=== PATIENT | female | born 1940 | race African-American/Black ===

== ENCOUNTER 2017-09-16 19:01 | Emergency (ER) | payer MEDICARE ==
[2017-09-16 19:08] VITALS: TEMP 98.4
[2017-09-16 19:26] VITALS: RESP 18
[2017-09-16] MEDS ORDERED: SODIUM CHLORIDE 0.9% 1,000 ML IV STA (19:44)
[2017-09-16] MEDS ORDERED: RX INFO: IV CONTRAST WAS GIVEN 1 EACH MISC MISCELLANE PRN (19:44)
[2017-09-16] MEDS ORDERED: SODIUM CHLORIDE 0.9% 500 ML IV STA (19:44)
[2017-09-16] MEDS ORDERED: MORPHINE SULFATE 4 MG/ML SYRINGE IVP STA ×3 (19:45→21:22)
[2017-09-16 20:02] LABS: Basophils % (A) 0 %; Eosinophils # (A) 0.2 k/uL (0-0.7); Eosinophils % (A) 3 %; HCT 40.1 % (34.0-46.0); HGB 13.1 gm/dL (11.4-16.0); Lymphocytes # (A) 2.1 k/uL (1.0-4.8); Lymphocytes % (A) 25 %; MCHC 32.6 g/dL (31.0-37.0); Mean Platelet Volume 8.3; Monocytes # (A) 0.4 k/uL (0-1.0); Monocytes % (A) 5 %; Neutrophils # (A) 5.4 k/uL (1.3-7.7); Neutrophils % (A) 66 %; Platelet Count 175 k/uL (150-450); RBC 4.51 m/uL (3.80-5.40); RDW 13.9 % (11.5-15.5); WBC 8.2 k/uL (3.8-10.6)
--- NOTE | 2017-09-16 20:07 | ED ---
General Adult HPI - General Chief complaint: Abdominal Pain Stated complaint: Side pain & vomiting Time Seen by Provider: 09/16/17 19:13 Source: patient, RN notes reviewed, old records reviewed Mode of arrival: wheelchair Limitations: no limitations - History of Present Illness Initial comments: This is a 77-year-old female to the ER for evaluation. This patient presents today for evaluation regarding abdominal pain. Right flank pain. No prior history of pain no prior surgical history no fevers. Patient did of nausea with one episode of vomiting. No recent travel history no sick history, no urinary or bowel issues - Related Data Home Medications Medication Instructions Recorded Confirmed Atorvastatin [Lipitor] 10 mg PO DAILY 05/04/14 09/16/17 Gabapentin [Neurontin] 300 mg PO HS 05/04/14 09/16/17 Losartan [Cozaar] 25 mg PO DAILY 05/04/14 09/16/17 Diclofenac Sodium Gel [Voltaren 4 gm TOPICAL BID PRN 06/12/14 09/16/17 Gel] Mometasone Furoate 1 applic TOPICAL BID 11/14/15 09/16/17 Triamterene/Hydrochlorothiazid 0.5 tab PO DAILY 09/16/17 09/16/17 [Triamterene-Hctz 37.5-25 mg Tb] Previous Rx's Medication Instructions Recorded HYDROcodone/APAP 5-325MG [[place] 1 tab PO Q6HR PRN 3 Days #12 tab 09/16/17 5-325] Allergies Allergy/AdvReac Type Severity Reaction Status Date / Time No Known Allergies Allergy Verified 09/16/17 19:41 Review of Systems ROS Statement: Those systems with pertinent positive or pertinent negative responses have been documented in the HPI. ROS Other: All systems not noted in ROS Statement are negative. Past Medical History Past Medical History: Hyperlipidemia, Hypertension Additional Past Medical History / Comment(s): 06/12/14 Pt admitted to floor s/p Total L knee arthroplasty. Other HX: DIABETES (NO LONGER ON MEDS), PAIN RT SHOULDER FROM FALL -RECEIVED CORTISONE INJECTION 06/07/14. ARTHRITIS ILIANA KNEES. History of Any Multi-Drug Resistant Organisms: None Reported Past Surgical History: Back Surgery Additional Past Surgical History / Comment(s): 06/12/14 Total L knee arthroplasty. D & C Past Anesthesia/Blood Transfusion Reactions: No Reported Reaction Past Psychological History: No Psychological Hx Reported Smoking Status: Never smoker Past Alcohol Use History: None Reported Past Drug Use History: None Reported - Past Family History Mother Family Medical History: No Reported History, CVA/TIA Father Family Medical History: CVA/TIA General Exam Limitations: no limitations General appearance: alert, in no apparent distress, obese Head exam: Present: atraumatic, normocephalic, normal inspection Eye exam: Present: normal appearance, PERRL, EOMI. Absent: scleral icterus, conjunctival injection, periorbital swelling ENT exam: Present: normal exam, mucous membranes moist Neck exam: Present: normal inspection. Absent: tenderness, meningismus, lymphadenopathy Respiratory exam: Present: normal lung sounds bilaterally. Absent: respiratory distress, wheezes, rales, rhonchi, stridor Cardiovascular Exam: Present: regular rate, normal rhythm, normal heart sounds. Absent: systolic murmur, diastolic murmur, rubs, gallop, clicks GI/Abdominal exam: Present: soft, normal bowel sounds. Absent: distended, tenderness, guarding, rebound, rigid Extremities exam: Present: normal inspection, full ROM, normal capillary refill. Absent: tenderness, pedal edema, joint swelling, calf tenderness Back exam: Present: normal inspection Neurological exam: Present: alert, oriented X3, CN II-XII intact Psychiatric exam: Present: normal affect, normal mood Skin exam: Present: warm, dry, intact, normal color. Absent: rash Course Vital Signs 09/16/17 09/16/17 09/16/17 19:06 19:25 20:15 Temperature 98.4 F Pulse Rate 83 85 76 Respiratory 20 18 18 Rate Blood Pressure 241/105 220/99 209/95 O2 Sat by Pulse 96 97 98 Oximetry 09/16/17 09/16/17 09/16/17 20:54 21:13 21:31 Temperature Pulse Rate 91 83 73 Respiratory 18 18 18 Rate Blood Pressure 243/124 187/81 153/71 O2 Sat by Pulse 99 100 100 Oximetry 09/16/17 21:39 Temperature Pulse Rate 82 Respiratory 18 Rate Blood Pressure 181/77 O2 Sat by Pulse 100 Oximetry Medical Decision Making - Lab Data Result diagrams: 09/16/17 19:35 09/16/17 19:35 Lab Results 09/16/17 09/16/17 09/16/17 Range/Units 19:35 19:35 19:35 WBC 8.2 (3.8-10.6) k/uL RBC 4.51 (3.80-5.40) m/uL Hgb 13.1 (11.4-16.0) gm/dL Hct 40.1 (34.0-46.0) % MCV 89.0 (80.0-100.0) fL MCH 29.0 (25.0-35.0) pg MCHC 32.6 (31.0-37.0) g/dL RDW 13.9 (11.5-15.5) % Plt Count 175 (150-450) k/uL Neutrophils % 66 % Lymphocytes % 25 % Monocytes % 5 % Eosinophils % 3 % Basophils % 0 % Neutrophils # 5.4 (1.3-7.7) k/uL Lymphocytes # 2.1 (1.0-4.8) k/uL Monocytes # 0.4 (0-1.0) k/uL Eosinophils # 0.2 (0-0.7) k/uL Basophils # 0.0 (0-0.2) k/uL PT (9.0-12.0) sec INR (<1.2) APTT (22.0-30.0) sec Sodium 142 (137-145) mmol/L Potassium 4.1 (3.5-5.1) mmol/L Chloride 103 (98-107) mmol/L Carbon Dioxide 28 (22-30) mmol/L Anion Gap 11 mmol/L BUN 15 (7-17) mg/dL Creatinine 0.82 (0.52-1.04) mg/dL Est GFR (CKD-EPI)AfAm 81 (>60 ml/min/1.73 sqM) Est GFR (CKD-EPI)NonAf 70 (>60 ml/min/1.73 sqM) Glucose 112 H (74-99) mg/dL Plasma Lactic Acid Ron 1.2 (0.7-2.0) mmol/L Calcium 9.9 (8.4-10.2) mg/dL Total Bilirubin 0.3 (0.2-1.3) mg/dL AST 42 H (14-36) U/L ALT 45 (9-52) U/L Alkaline Phosphatase 95 (38-126) U/L Total Protein 7.4 (6.3-8.2) g/dL Albumin 4.2 (3.5-5.0) g/dL Amylase 83 (30-110) U/L Lipase 248 (23-300) U/L Urine Color Urine Appearance (Clear) Urine pH (5.0-8.0) Ur Specific [place] (1.001-1.035) Urine Protein (Negative) Urine Glucose (UA) (Negative) Urine Ketones (Negative) Urine Blood (Negative) Urine Nitrite (Negative) Urine Bilirubin (Negative) Urine Urobilinogen (<2.0) mg/dL Ur Leukocyte Esterase (Negative) Urine RBC (0-5) /hpf Urine WBC (0-5) /hpf Ur Squamous Epith Cells (0-4) /hpf Urine Mucus (None) /hpf 09/16/17 09/16/17 Range/Units 19:35 21:00 WBC (3.8-10.6) k/uL RBC (3.80-5.40) m/uL Hgb (11.4-16.0) gm/dL Hct (34.0-46.0) % MCV (80.0-100.0) fL MCH (25.0-35.0) pg MCHC (31.0-37.0) g/dL RDW (11.5-15.5) % Plt Count (150-450) k/uL Neutrophils % % Lymphocytes % % Monocytes % % Eosinophils % % Basophils % % Neutrophils # (1.3-7.7) k/uL Lymphocytes # (1.0-4.8) k/uL Monocytes # (0-1.0) k/uL Eosinophils # (0-0.7) k/uL Basophils # (0-0.2) k/uL PT 9.8 (9.0-12.0) sec INR 1.0 (<1.2) APTT 22.3 (22.0-30.0) sec Sodium (137-145) mmol/L Potassium (3.5-5.1) mmol/L Chloride (98-107) mmol/L Carbon Dioxide (22-30) mmol/L Anion Gap mmol/L BUN (7-17) mg/dL Creatinine (0.52-1.04) mg/dL Est GFR (CKD-EPI)AfAm (>60 ml/min/1.73 sqM) Est GFR (CKD-EPI)NonAf (>60 ml/min/1.73 sqM) Glucose (74-99) mg/dL Plasma Lactic Acid Ron (0.7-2.0) mmol/L Calcium (8.4-10.2) mg/dL Total Bilirubin (0.2-1.3) mg/dL AST (14-36) U/L ALT (9-52) U/L Alkaline Phosphatase (38-126) U/L Total Protein (6.3-8.2) g/dL Albumin (3.5-5.0) g/dL Amylase (30-110) U/L Lipase (23-300) U/L Urine Color Yellow Urine Appearance Clear (Clear) Urine pH 6.0 (5.0-8.0) Ur Specific [place] 1.043 H (1.001-1.035) Urine Protein 1+ H (Negative) Urine Glucose (UA) Negative (Negative) Urine Ketones Negative (Negative) Urine Blood Negative (Negative) Urine Nitrite Negative (Negative) Urine Bilirubin Negative (Negative) Urine Urobilinogen <2.0 (<2.0) mg/dL Ur Leukocyte Esterase Moderate H (Negative) Urine RBC 4 (0-5) /hpf Urine WBC 11 H (0-5) /hpf Ur Squamous Epith Cells 5 H (0-4) /hpf Urine Mucus Rare H (None) /hpf Disposition Clinical Impression: Abdominal pain Disposition: HOME SELF-CARE Condition: Good Instructions: Abdominal Pain (ED) Prescriptions: HYDROcodone/APAP 5-325MG [[place] 5-325] 1 tab PO Q6HR PRN 3 Days #12 tab PRN Reason: Pain Is patient prescribed a controlled substance at d/c from ED?: No Referrals: Eduard Pérez MD [Primary Care Provider] - 1-2 days
[2017-09-16 20:14] LABS: Partial Thromboplastin Time 22.3 sec (22.0-30.0); Prothrombin Time 9.8 sec (9.0-12.0)
[2017-09-16 20:26] LABS: Albumin 4.2 g/dL (3.5-5.0); Calcium 9.9 mg/dL (8.4-10.2); Potassium 4.1 mmol/L (3.5-5.1); Total Bilirubin 0.3 mg/dL (0.2-1.3); Total Protein 7.4 g/dL (6.3-8.2)
[2017-09-16] MEDS ORDERED: LABETALOL 5 MG/ML VIAL MDV IVP STA (20:54)
[2017-09-16] MEDS ORDERED: ONDANSETRON ODT 4 MG TAB PO PRN (21:05)
[2017-09-16] MEDS ORDERED: HYDROcodone/APAP 5-325MG 1 EACH TAB PO PRN (21:05)
[2017-09-16] MEDS ORDERED: CEPHALEXIN 500 MG CAP PO STA (21:05)
[2017-09-16] MEDS ORDERED: AMOXIC-POT CLAV 875-125MG 1 EACH TAB PO STA (21:05)
[2017-09-16] MEDS ORDERED: HYDROcodone/APAP 5-325MG 1 EACH TAB PO STA (21:05)
--- NOTE | 2017-09-16 21:18 | CT ---
EXAMINATION TYPE: CT abdomen pelvis w con DATE OF EXAM: 09/16/2017 COMPARISON: NONE HISTORY: Right side abdominal pain with vomiting CT DLP: 1089.0 mGycm Automated exposure control for dose reduction was used. TECHNIQUE: Helical acquisition of images was performed from the lung bases through the pelvis. DLP 1 989 mGy-cm. CONTRAST: Performed without Oral Contrast and with IV Contrast, patient injected with 100 mL of Isovu e 300. FINDINGS: LUNG BASES: No significant abnormality is appreciated. LIVER/GB: No significant abnormality is appreciated. PANCREAS: No significant abnormality is seen. SPLEEN: No significant abnormality is seen. ADRENALS: No significant abnormality is seen. KIDNEYS: No significant abnormality is seen. FREE AIR: No free air is visualized. RETROPERITONEAL ADENOPATHY: None visualized REPRODUCTIVE ORGANS: No significant abnormality is seen, although calcified fibroids are incidentally noted. URINARY BLADDER: No significant abnormality is seen. PELVIC ADENOPATHY: None visualized. OSSEOUS STRUCTURES: No significant abnormality is seen. BOWEL: No significant abnormality is seen. There is no dilation of the stomach or the duodenum. No d ilation of the small bowel or large bowel. OTHER: Vasculature is unremarkable. IMPRESSION: 1. NO ACUTE PROCESS. 2. Small hiatal hernia noted.
[2017-09-16] MEDS ORDERED: KETOROLAC 30 MG/ML 1 ML VIAL IVP STA (21:22)
[2017-09-16 21:29] LABS: Appearance,Urine Clear (Clear); Bilirubin,Urine Negative (Negative); Blood,Urine Negative (Negative); Color,Urine Yellow; Glucose,Urine (UA) Negative (Negative); Ketones,Urine Negative (Negative); Leukocyte Esterase,Urine Moderate (Negative); Mucus,Urine Rare /hpf; Nitrite,Urine Negative (Negative); Protein,Urine 1+ (Negative); RBC,Urine 4 /hpf (0-5); Specific Gravity,Urine 1.043 (1.001-1.035); Squamous Epithelial Cell,Urine 5 /hpf (0-4); Urobilinogen,Urine <2.0 mg/dL (<2.0); WBC,Urine 11 /hpf (0-5)
[2017-09-16 21:40] VITALS: BP 181/77; PULSE 82
[2017-09-16] MEDS ORDERED: CEPHALEXIN 500 MG CAP PO SCH (22:00)
[2017-09-17] MEDS ORDERED: AMOXIC-POT CLAV 875-125MG 1 EACH TAB PO SCH (09:00)
== END 2017-09-16 21:56 | disposition home or self-care (01) ==
LOC: EC 19:01
DX: R10.9 Unspecified abdominal pain (principal); R11.2 Nausea with vomiting, unspecified; E78.5 Hyperlipidemia, unspecified; I10 Essential (primary) hypertension; E66.9 Obesity, unspecified; Z79.52 Long term (current) use of systemic steroids; Z79.899 Other long term (current) drug therapy; Z68.36 Body mass index [BMI] 36.0-36.9, adult
CPT/HCPCS: 36415; 80053; 82150; 83605; 83690; 85025; 85610; 85730; 81001; 87086; 74177; 99285; 96374; 96375 ×2; 96376 ×2; 96361 ×2; J2270; J1885; Q9967

== ENCOUNTER → 2018-06-27 | Outpatient (CLI) | payer MEDICARE ==
--- NOTE | 2018-06-27 15:51 | US ---
EXAMINATION TYPE: US venous doppler duplex LE RT DATE OF EXAM: 06/27/2018 3:12 PM COMPARISON: US CLINICAL HISTORY: M79.89 Other Soft Tissue Disorders. Pt states right leg pain SIDE PERFORMED: Right TECHNIQUE: The lower extremity deep venous system is examined utilizing real time linear array sonog lindsey with graded compression, doppler sonography and color-flow sonography. VESSELS IMAGED: External Iliac Vein (EIV) Common Femoral Vein Deep Femoral Vein Greater Saphenous Vein * Femoral Vein Popliteal Vein Small Saphenous Vein * Proximal Calf Veins (* superficial vessels) Right Leg: Negative for DVT Results called to Judy at Dr's office at time of exam IMPRESSION: 1. Right lower extremity ultrasound negative for deep venous thrombosis.
== END | disposition home or self-care (01) ==
LOC: RADUSWWP 14:21
PROVIDERS: ATTEND Internal Medicine
DX: M79.89 Other specified soft tissue disorders (principal)

== ENCOUNTER 2018-07-17 13:06 | Inpatient (IN) | payer MEDICARE ==
--- NOTE | 2018-07-17 13:34 | ED ---
Extremity Problem HPI <Josué Cardoza - Last Filed: 07/17/18 17:30> - General Source: patient, RN notes reviewed, old records reviewed Mode of arrival: wheelchair Limitations: no limitations <RemiYamila - Last Filed: 07/17/18 17:59> - General Chief complaint: Extremity Problem,Nontraumatic Stated complaint: Leg pain Time Seen by Provider: 07/17/18 13:18 - History of Present Illness Initial comments: Patient is a 78-year-old female who presents today with progressive right leg pain and swelling. Patient reports she was seen by her PCP Dr. Pérez and prescribed antibiotics for a chronic ulceration. She's been on Keflex for the past week. Patient ports that she had a normal Doppler ultrasound on July 05. Patient complains of worsening pain with ambulation and range of motion of the foot and ankle. Patient states that she has had no fevers or chills. Patient reports that she is scheduled to see Dr. Cardenas on for evaluation. Patient reports that she was concerned because last night the wound over her the lateral aspect of the ankle was open and starting to drain. (Yamila Khalil) - Related Data Home Medications Medication Instructions Recorded Confirmed Atorvastatin [Lipitor] 10 mg PO DAILY 05/04/14 09/16/17 Gabapentin [Neurontin] 300 mg PO HS 05/04/14 09/16/17 Losartan [Cozaar] 25 mg PO DAILY 05/04/14 09/16/17 Diclofenac Sodium Gel [Voltaren 4 gm TOPICAL BID PRN 06/12/14 09/16/17 Gel] Mometasone Furoate 1 applic TOPICAL BID 11/14/15 09/16/17 Triamterene/Hydrochlorothiazid 0.5 tab PO DAILY 09/16/17 09/16/17 [Triamterene-Hctz 37.5-25 mg Tb] Previous Rx's Medication Instructions Recorded HYDROcodone/APAP 5-325MG [[place] 1 tab PO Q6HR PRN 3 Days #12 tab 09/16/17 5-325] Allergies Allergy/AdvReac Type Severity Reaction Status Date / Time No Known Allergies Allergy Verified 07/17/18 13:13 Review of Systems ROS Other: All systems not noted in ROS Statement are negative. <Josué Cardoza - Last Filed: 07/17/18 17:30> ROS Other: All systems not noted in ROS Statement are negative. <Yamila Khalil - Last Filed: 07/17/18 17:59> ROS Statement: Those systems with pertinent positive or pertinent negative responses have been documented in the HPI. Past Medical History Past Medical History: Hyperlipidemia, Hypertension Additional Past Medical History / Comment(s): 06/12/14 Pt admitted to floor s/p Total L knee arthroplasty. Other HX: DIABETES (NO LONGER ON MEDS), PAIN RT SHOULDER FROM FALL -RECEIVED CORTISONE INJECTION 06/07/14. ARTHRITIS ILIANA KNEES. History of Any Multi-Drug Resistant Organisms: None Reported Past Surgical History: Back Surgery Additional Past Surgical History / Comment(s): 06/12/14 Total L knee arthroplasty. D & C Past Anesthesia/Blood Transfusion Reactions: No Reported Reaction Past Psychological History: No Psychological Hx Reported Smoking Status: Never smoker Past Alcohol Use History: None Reported Past Drug Use History: None Reported - Past Family History Mother Family Medical History: No Reported History, CVA/TIA Father Family Medical History: CVA/TIA <Yamila Khalil - Last Filed: 07/17/18 17:59> General Exam Limitations: no limitations General appearance: alert, in no apparent distress Head exam: Present: atraumatic, normocephalic, normal inspection Eye exam: Present: normal appearance, PERRL, EOMI. Absent: scleral icterus, conjunctival injection, periorbital swelling ENT exam: Present: normal exam, mucous membranes moist Neck exam: Present: normal inspection. Absent: tenderness, meningismus, lymp hadenopathy Respiratory exam: Present: normal lung sounds bilaterally. Absent: respiratory distress, wheezes, rales, rhonchi, stridor Cardiovascular Exam: Present: regular rate, normal rhythm, normal heart sounds. Absent: systolic murmur, diastolic murmur, rubs, gallop, clicks GI/Abdominal exam: Present: soft, normal bowel sounds. Absent: distended, tenderness, guarding, rebound, rigid Extremities exam: Present: normal inspection, full ROM, normal capillary refill. Absent: tenderness, pedal edema, joint swelling, calf tenderness Right Upper Leg exam: Present: normal inspection, full ROM Knee exam: Present: normal inspection, full ROM Lower Leg exam: Absent: normal inspection (Evidence of darkening skin changes over the lower leg consistent with venous insufficiency. Patient has swelling and tenderness over the posterior calf. She is evidence of ulceration and chronic wound measuring 4 cm x 3 studies. Patient reports that it was open and draining.) Back exam: Present: normal inspection Neurological exam: Present: alert, oriented X3, CN II-XII intact Psychiatric exam: Present: normal affect, normal mood <Yamila Khalil - Last Filed: 07/17/18 17:59> - General Exam Comments Initial Comments: This is a 78-year-old -[place] female. Alert and oriented 3. Patient appears in no significant distress. (Yamila Khalil) Course Vital Signs 07/17/18 07/17/18 13:09 16:16 Temperature 98.6 F Pulse Rate 96 81 Respiratory 18 18 Rate Blood Pressure 131/72 182/88 O2 Sat by Pulse 97 98 Oximetry Medical Decision Making - Lab Data Result diagrams: 07/17/18 13:55 07/17/18 13:55 <Josué Cardoza - Last Filed: 07/17/18 17:30> - Lab Data Result diagrams: 07/17/18 13:55 07/17/18 13:55 - Radiology Data Radiology results: report reviewed <Yamila Khalil - Last Filed: 07/17/18 17:59> - Medical Decision Making Decision making; this is a 78-year-old female with a complaint of drainage from a wound to her lower lateral right leg. She reports it started several weeks ago. Currently being treated with Keflex by the family physician. Patient reports she used to be on medications for diabetes. Today's blood glucose was 500. She received IV fluids and IV insulin. The patient's labs show white count 6.6 hemoglobin 11 hematocrit of 36 with a INR 0.9. Potassium 4.6 BUN 13 creatinine 0.79 and a GFR 73. Glucose greater than 500. UA and urine shows 4+ glucose and 11 wbc's. The patient received IV fluids and IV insulin as noted above. She is alert and oriented. Is able ambulate. Ultrasound of the leg was negative for DVT. Plasma lactic acid is normal 1.7. I discussed the case with a patient and her daughter at bedside. Patient be admitted to the hospital. She has appointment for follow-up with her vascular surgeon lateral no weakness or be requested while in hospital. Patient will be admitted for uncontrolled diabetes. Acetone level still pending at this time. I discussed the case with Dr. Martínez on-call for Dr. Pérez. Admission and further management. Dr. Cardoza (Josué Cardoza) - Lab Data Lab Results 07/17/18 07/17/18 07/17/18 Range/Units 13:55 13:55 13:55 WBC 6.6 (3.8-10.6) k/uL RBC 4.06 (3.80-5.40) m/uL Hgb 11.5 (11.4-16.0) gm/dL Hct 36.3 (34.0-46.0) % MCV 89.4 (80.0-100.0) fL MCH 28.2 (25.0-35.0) pg MCHC 31.6 (31.0-37.0) g/dL RDW 12.8 (11.5-15.5) % Plt Count 201 (150-450) k/uL Neutrophils % 66 % Lymphocytes % 23 % Monocytes % 5 % Eosinophils % 4 % Basophils % 1 % Neutrophils # 4.3 (1.3-7.7) k/uL Lymphocytes # 1.5 (1.0-4.8) k/uL Monocytes # 0.4 (0-1.0) k/uL Eosinophils # 0.3 (0-0.7) k/uL Basophils # 0.0 (0-0.2) k/uL PT (9.0-12.0) sec INR (<1.2) APTT (22.0-30.0) sec Sodium 135 L (137-145) mmol/L Potassium 4.6 (3.5-5.1) mmol/L Chloride 98 (98-107) mmol/L Carbon Dioxide 29 (22-30) mmol/L Anion Gap 8 mmol/L BUN 13 (7-17) mg/dL Creatinine 0.79 (0.52-1.04) mg/dL Est GFR (CKD-EPI)AfAm 84 (>60 ml/min/1.73 sqM) Est GFR (CKD-EPI)NonAf 73 (>60 ml/min/1.73 sqM) Glucose 500 H (74-99) mg/dL Plasma Lactic Acid Ron 1.7 (0.7-2.0) mmol/L Calcium 10.1 (8.4-10.2) mg/dL Total Bilirubin 0.5 (0.2-1.3) mg/dL AST 21 (14-36) U/L ALT 29 (9-52) U/L Alkaline Phosphatase 130 H (38-126) U/L Total Protein 7.7 (6.3-8.2) g/dL Albumin 3.6 (3.5-5.0) g/dL Urine Color Urine Appearance (Clear) Urine pH (5.0-8.0) Ur Specific [place] (1.001-1.035) Urine Protein (Negative) Urine Glucose (UA) (Negative) Urine Ketones (Negative) Urine Blood (Negative) Urine Nitrite (Negative) Urine Bilirubin (Negative) Urine Urobilinogen (<2.0) mg/dL Ur Leukocyte Esterase (Negative) Urine RBC (0-5) /hpf Urine WBC (0-5) /hpf Ur Squamous Epith Cells (0-4) /hpf 07/17/18 07/17/18 Range/Units 13:55 13:55 WBC (3.8-10.6) k/uL RBC (3.80-5.40) m/uL Hgb (11.4-16.0) gm/dL Hct (34.0-46.0) % MCV (80.0-100.0) fL MCH (25.0-35.0) pg MCHC (31.0-37.0) g/dL RDW (11.5-15.5) % Plt Count (150-450) k/uL Neutrophils % % Lymphocytes % % Monocytes % % Eosinophils % % Basophils % % Neutrophils # (1.3-7.7) k/uL Lymphocytes # (1.0-4.8) k/uL Monocytes # (0-1.0) k/uL Eosinophils # (0-0.7) k/uL Basophils # (0-0.2) k/uL PT 10.1 (9.0-12.0) sec INR 0.9 (<1.2) APTT 24.0 (22.0-30.0) sec Sodium (137-145) mmol/L Potassium (3.5-5.1) mmol/L Chloride (98-107) mmol/L Carbon Dioxide (22-30) mmol/L Anion Gap mmol/L BUN (7-17) mg/dL Creatinine (0.52-1.04) mg/dL Est GFR (CKD-EPI)AfAm (>60 ml/min/1.73 sqM) Est GFR (CKD-EPI)NonAf (>60 ml/min/1.73 sqM) Glucose (74-99) mg/dL Plasma Lactic Acid Ron (0.7-2.0) mmol/L Calcium (8.4-10.2) mg/dL Total Bilirubin (0.2-1.3) mg/dL AST (14-36) U/L ALT (9-52) U/L Alkaline Phosphatase (38-126) U/L Total Protein (6.3-8.2) g/dL Albumin (3.5-5.0) g/dL Urine Color Light Yellow Urine Appearance Clear (Clear) Urine pH 7.5 (5.0-8.0) Ur Specific [place] 1.019 (1.001-1.035) Urine Protein Negative (Negative) Urine Glucose (UA) 4+ H (Negative) Urine Ketones Negative (Negative) Urine Blood Negative (Negative) Urine Nitrite Negative (Negative) Urine Bilirubin Negative (Negative) Urine Urobilinogen <2.0 (<2.0) mg/dL Ur Leukocyte Esterase Small H (Negative) Urine RBC 3 (0-5) /hpf Urine WBC 11 H (0-5) /hpf Ur Squamous Epith Cells 1 (0-4) /hpf - Radiology Data Severe osteoarthritis within the right knee lateral joint space. No fracture. No gingival exam. Ultrasound is negative for DVT. (Yamila Khalil) Disposition <Josué Cardoza - Last Filed: 07/17/18 17:30> Is patient prescribed a controlled substance at d/c from ED?: No Time of Disposition: 17:59 <Yamila Khalil - Last Filed: 07/17/18 17:59> Clinical Impression: Hyperglycemia, Stasis dermatitis, Non-healing wound, Wound of right ankle Disposition: ADMITTED IP TO THIS HOSP Condition: Stable Referrals: Eduard Pérez MD [Primary Care Provider] - 1-2 days
--- NOTE | 2018-07-17 14:17 | XR ---
EXAMINATION TYPE: XR tibia fibula RT DATE OF EXAM: 07/17/2018 COMPARISON: 02/02/2013 HISTORY: Pain TECHNIQUE: 2 views FINDINGS: There is moderate narrowing of the knee joint spaces. The ankle joint appears intact. I see no fracture nor dislocation. There is some depression of the lateral tibial plateau. IMPRESSION: Moderately severe osteoarthritis in the right knee and more in the lateral joint space. N o fracture. No significant change compared to old exam.
[2018-07-17 14:38] LABS: Basophils % (A) 1 %; Eosinophils # (A) 0.3 k/uL (0-0.7); Eosinophils % (A) 4 %; HCT 36.3 % (34.0-46.0); HGB 11.5 gm/dL (11.4-16.0); Lymphocytes # (A) 1.5 k/uL (1.0-4.8); Lymphocytes % (A) 23 %; MCH 28.2 pg (25.0-35.0); MCHC 31.6 g/dL (31.0-37.0); MCV 89.4 fL (80.0-100.0); Mean Platelet Volume 8.5; Monocytes # (A) 0.4 k/uL (0-1.0); Monocytes % (A) 5 %; Neutrophils # (A) 4.3 k/uL (1.3-7.7); Neutrophils % (A) 66 %; Platelet Count 201 k/uL (150-450); RBC 4.06 m/uL (3.80-5.40); RDW 12.8 % (11.5-15.5); WBC 6.6 k/uL (3.8-10.6)
[2018-07-17 14:40] LABS: Appearance,Urine Clear (Clear); Bilirubin,Urine Negative (Negative); Blood,Urine Negative (Negative); Color,Urine Light Yellow; Glucose,Urine (UA) 4+ (Negative); Ketones,Urine Negative (Negative); Leukocyte Esterase,Urine Small (Negative); Nitrite,Urine Negative (Negative); PH, Urine 7.5 (5.0-8.0); Protein,Urine Negative (Negative); RBC,Urine 3 /hpf (0-5); Specific Gravity,Urine 1.019 (1.001-1.035); Squamous Epithelial Cell,Urine 1 /hpf (0-4); Urobilinogen,Urine <2.0 mg/dL (<2.0); WBC,Urine 11 /hpf (0-5)
[2018-07-17 14:46] LABS: INR 0.9 (<1.2); Prothrombin Time 10.1 sec (9.0-12.0)
[2018-07-17 14:48] LABS: Albumin 3.6 g/dL (3.5-5.0); Calcium 10.1 mg/dL (8.4-10.2); Potassium 4.6 mmol/L (3.5-5.1); Total Bilirubin 0.5 mg/dL (0.2-1.3); Total Protein 7.7 g/dL (6.3-8.2)
[2018-07-17] MEDS ORDERED: INSULIN REGULAR 100 UNIT/ML VIAL IV ONE (15:15)
--- NOTE | 2018-07-17 15:29 | US ---
EXAMINATION TYPE: US venous doppler duplex LE RT DATE OF EXAM: 07/17/2018 3:14 PM COMPARISON: NONE CLINICAL HISTORY: Pain. Swelling in right calf and foot has increased in the past 10 days, no h/o dvt SIDE PERFORMED: Right TECHNIQUE: The lower extremity deep venous system is examined utilizing real time linear array sonog lindsey with graded compression, doppler sonography and color-flow sonography. VESSELS IMAGED: External Iliac Vein (EIV) Common Femoral Vein Deep Femoral Vein Greater Saphenous Vein * Femoral Vein Popliteal Vein Small Saphenous Vein * Proximal Calf Veins (* superficial vessels) Right Leg: Appears negative for DVT IMPRESSION: Normal exam. No deep venous thrombosis in the right leg.
[2018-07-17] MEDS ORDERED: SODIUM CHLORIDE 0.9% 1,000 ML IV ONE (16:56)
[2018-07-17] MEDS ORDERED: MORPHINE SULFATE 4 MG/ML SYRINGE IVP STA (16:57)
[2018-07-17] MEDS ORDERED: IBUPROFEN 400 MG TAB PO PRN (17:40)
[2018-07-17] MEDS ORDERED: ACETAMINOPHEN TAB 325 MG TAB PO PRN (17:40)
[2018-07-17] MEDS ORDERED: ONDANSETRON 4 MG/2 ML VIAL IVP PRN (17:40)
[2018-07-17] MEDS ORDERED: MORPHINE SULFATE 4 MG/ML SYRINGE IV PRN (17:40)
[2018-07-17] MEDS ORDERED: NALOXONE 0.4 MG/ML 1 ML VIAL IV PRN (17:40)
[2018-07-17] MEDS ORDERED: ceFAZolin IN SWFI 2 GM/20 ML SYRINGE IVP STA (17:41)
[2018-07-17] MEDS: SODIUM CHLORIDE 0.9% 1,000 ML IV SCH (18:37)
[2018-07-17 19:13] LABS: Glucose,Whole Blood 279 mg/dL (75-99)
[2018-07-17] MEDS ORDERED: DICLOFENAC SODIUM GEL 100 GM TUBE TOPICAL PRN (19:34)
--- NOTE | 2018-07-17 20:57 | P.HPIM ---
History of Present Illness H&P Date: 07/17/18 (Dr. Pérez attending physician) Chief Complaint: Severe pain in her right lower leg lower third with the ulceration, PAD, DM Past Medical History Past Medical History: Hyperlipidemia, Hypertension Additional Past Medical History / Comment(s): 06/12/14 Pt admitted to floor s/p Total L knee arthroplasty. Other HX: DIABETES (NO LONGER ON MEDS), PAIN RT SHOULDER FROM FALL -RECEIVED CORTISONE INJECTION 06/07/14. ARTHRITIS ILIANA KNEES. History of Any Multi-Drug Resistant Organisms: None Reported Past Surgical History: Back Surgery Additional Past Surgical History / Comment(s): 06/12/14 Total L knee arthroplasty. D & C Past Anesthesia/Blood Transfusion Reactions: No Reported Reaction Past Psychological History: No Psychological Hx Reported Smoking Status: Never smoker Past Alcohol Use History: None Reported Additional Past Alcohol Use History / Comment(s): Pt lives in her home with her víctor. Víctor does work varying shifts but lately mostly days. Pt's home is one level but there are 4-5 steps to get into house. Pt has a cane. Pt is independebt- she drives a car. Past Drug Use History: None Reported - Past Family History Mother Family Medical History: No Reported History, CVA/TIA Father Family Medical History: CVA/TIA Medications and Allergies Home Medications Medication Instructions Recorded Confirmed Type Atorvastatin [Lipitor] 10 mg PO DAILY 05/04/14 07/17/18 History Gabapentin [Neurontin] 300 mg PO HS 05/04/14 07/17/18 History Losartan [Cozaar] 25 mg PO DAILY 05/04/14 07/17/18 History Diclofenac Sodium Gel [Voltaren 4 gm TOPICAL BID PRN 06/12/14 07/17/18 History Gel] Mometasone Furoate 1 applic TOPICAL BID 11/14/15 07/17/18 History Triamterene/Hydrochlorothiazid 0.5 tab PO DAILY 09/16/17 07/17/18 History [Triamterene-Hctz 37.5-25 mg Tb] Cephalexin [Keflex] 500 mg PO TID 07/17/18 07/17/18 History Cholecalciferol (Vitamin D3) 2,000 unit PO DAILY 07/17/18 07/17/18 History [Vitamin D3] Allergies Allergy/AdvReac Type Severity Reaction Status Date / Time No Known Allergies Allergy Verified 07/17/18 18:57 Physical Exam Vitals: Vital Signs Temp Pulse Resp BP Pulse Ox 07/17/18 18:38 79 18 165/82 97 07/17/18 16:16 81 18 182/88 98 07/17/18 13:09 98.6 F 96 18 131/72 97 Intake and Output 07/17/18 07/17/18 07/17/18 06:59 14:59 22:59 Other: Weight 105.233 kg Results CBC & Chem 7: 07/17/18 13:55 07/17/18 13:55 Labs: Abnormal Lab Results - Last 24 Hours (Table) 07/17/18 07/17/18 07/17/18 Range/Units 13:55 13:55 19:11 Sodium 135 L (137-145) mmol/L Glucose 500 H (74-99) mg/dL POC Glucose (mg/dL) 279 H (75-99) mg/dL Alkaline Phosphatase 130 H (38-126) U/L Urine Glucose (UA) 4+ H (Negative) Ur Leukocyte Esterase Small H (Negative) Urine WBC 11 H (0-5) /hpf Thrombosis Risk Factor Assmnt - Choose All That Apply Each Factor Represents 1 point: Obesity (BMI >25), Swollen legs (current) Other Risk Factors: Yes Each Risk Factor Represents 3 Points: Age 75 years or older Thrombosis Risk Factor Assessment Total Risk Factor Score: 5 Thrombosis Risk Factor Assessment Level: High Risk
[2018-07-17] MEDS ORDERED: GABAPENTIN 300 MG CAP PO SCH (21:00)
[2018-07-17] MEDS ORDERED: INSULIN DETEMIR (LEVEMIR) 100 UNIT/ML SYR SQ SCH (21:00)
[2018-07-17 22:09] LABS: Glucose,Whole Blood 307 mg/dL (75-99)
[2018-07-17] MEDS: ATORVASTATIN 10 MG TAB PO SCH (22:11)
[2018-07-17] MEDS: HEPARIN SODIUM,PORCINE 5,000 UNIT/ML 1 ML VIAL SQ SCH (22:12)
[2018-07-17] MEDS: LOSARTAN 50 MG TAB PO SCH (22:12)
--- NOTE | 2018-07-17 22:15 | HP ---
HISTORY AND PHYSICAL She is a FULL CODE. Her height is 5 feet 8 inches, weight is 105.233 kg, BSA is 2.18 m2, BMI 35.3 kg. She has unknown allergy. The patient presented to the emergency room to Dr. Josué Cardoza and at that time complaining of her right leg pain as well as found to have hyperglycemia with the blood sugar 500. Subsequently, patient admitted to the hospital for further investigation and she had appointment on Wednesday with Dr. Cardenas, vascular surgeon, and with these current acute problems she will be in the hospital and consultation was ordered by the ER to Dr. Matt Cardenas, vascular surgeon. On discussion with the patient on what happened, the patient stated that she has pain in her right leg and there is some weeping ulcer in the lower third of the leg and has been painful all her right leg shaft and even could not be touched and also her calf is tender. The patient today, on 07/17/2018, in the ER underwent ultrasound venous Doppler study and was indicating normal exam, no evidence of DVT. Also, because of the pain she had x-ray of the tibia and fibula as well and showed that she had moderately severe osteoarthritis of the right knee and poor in the lateral joint space. No fracture and no significant change from prior old exam. On further questioning, patient had history of 5 years ago she was diabetic and at that time her blood sugar was close to normal and she quit taking medication as she did have episodes of hypoglycemia and then subsequently the patient did not take any medicine for the diabetes mellitus. She was eating normally and she was feeling normally and apparently in the emergency room found that her blood glucose was 500, at that time the hyperglycemia with the underlying history of diabetes mellitus. The patient also has history of hypertension and mild obesity and she also was taken oral antibiotic Keflex for the right leg weeping ulcer and also some cream. With the history of the pain as well, the patient stated that she does not have pain in her left lower extremity and she had history of left total knee arthroplasty by Dr. Larson. On reviewing her laboratory on this admission, was found to be white count 6.6 and hemoglobin 11.5, hematocrit 36.3, and platelet count 201. Her PT and INR was, PT 10.1 and INR was 0.9 and the PTT was 24. Her electrolytes was indicating her sodium 135, her potassium 4.6, chloride 98, carbon dioxide is 29, anion gap of 8, BUN of 13, and creatinine 0.79 with the estimated glomerular filtration rate for 84. Her glucose was 500 and she denied any recent infection and subsequently with the treatment insulin given in the ER, she gradually dropped to 279 and with the checking on her previous laboratory in July 05, 2018, her hemoglobin A1c was 9.1. With the underlying hyperglycemia and glucosuria through the kidneys with the 4+ glucose as well as hemoglobin A1c and indicating this diabetes mellitus type 2. At this time, patient was not on any medication for orally and we will continue coverage with the insulin and started Levemir at HS for controlling the blood sugar. All the rest of the lab was normal except alkaline phosphatase slightly elevated and her urinalysis showed to be 4+ glucose, as well as small leukocyte, but white cells is 11. With the suspicion of the urinary tract infection, patient was started on Rocephin IV piggyback 1 g q.12 hours. REVIEW OF THE SYSTEM: 1. Neuropsychiatry: She is conscious, alert, oriented. She will occasionally feel dizzy probably due to the hyperglycemia and could be because of blood pressure. But no falling attacks. 2. Cardiovascular: No history of chest pain or palpitation or angina. 3. Respiratory: No cough or expectoration and no wheezes. No rhonchi. No history of asthma in the past. No history of PA in the past. 4. GI: No history of hematemesis or melena or hematochezia and no vomiting. However, she had occasionally some nausea. 5. Genitourinary: She denied any dysuria, however, the urine showed the presence of WBC 11 with the small leukocyte esterase, could be also the reason for affecting the hyperglycemia. 6. Musculoskeletal: She walks with a cane and with no restriction. 7. Endocrine: She knows that she had history in the past of diabetes, but 5 years ago she stopped her medication. PAST MEDICAL HISTORY: Diabetes mellitus, hypertension, and taking medication. FAMILY HISTORY: She had 2 daughters and 1 son. She had a surgical history of left knee total arthroplasty by Dr. Larson. PHYSICAL EXAM: Patient is conscious, alert, oriented x3, able to give history. Her temperature 98.6 and pulse 96, normal, regular sinus and her blood pressure initially was controlled and subsequently her blood pressure went up to 182/88 with the presence of the pain as well as 165/82 with the saturation 97 on room air. Clinical exam, the head was normocephalic, atraumatic. Pupils equal, reactive. Conjunctivae were pink. Sclerae were anicteric. Oropharynx was negative. Neck was supple and no JVD. No thyromegaly. No lymphadenopathy. Trachea midline. The chest was clear to auscultation and percussion. The heart PMI in the 5th intercostal space outside midclavicular line with mild hypertensive heart disease. The heart was compensated as well and regular. The abdomen was soft. Positive bowel sounds and obese. No tenderness in the 4 quadrants. On the extremities she has bilateral stasis dermatitis. Also, the pulses on the left lower extremity dorsalis pedis and posterior tibial is intact as popliteal. On the right there is a very small ulcer 0.5 superficial and oozing with the underlying ischemic vascular disease with the pulses not palpable on the dorsalis pedis or the posterior tibial, diminished on the popliteal pulses. No edema was present and on the right lower extremities with the underlying tenderness of the right calf muscle as well and the pain is 8 to 9/10. The neurological examination grossly intact and no lateralizing sign. ASSESSMENT: 1. Acute with arteriovascular occlusive disease with the underlying non healed ulcer in the right lower extremity close to the lower third of the leg and the pulses not perfectly could not be palpated and we will be planned for multilevel right lower extremity ultrasound or Doppler and consultation with Dr. Matt Cardenas. 2. Hypertension with hypertensive heart disease. We will obtain the EKG as well as adjusting medication for the hypertension as well and meanwhile will decrease the IV fluid to 75 mL/h and obtain lab in a.m. 3. Hyperglycemia with the underlying diabetes mellitus type 2, currently on insulin for a.c. and HS and started on Levemir 20 units at HS with the hypoglycemic protocol. Her previous liver profile was normal in the old laboratory done recently in late 2018. Dr. Pérez will follow the patient in a.m. MMGELACIO / WILDERN: [id number] /
[2018-07-17] MEDS: INSULIN ASPART (NovoLOG) 100 UNIT/ML VIAL SQ SCH (22:27)
[2018-07-18] MEDS: HYDROcodone/APAP 5-325MG 1 EACH TAB PO PRN ×3 (01:30→19:47)
[2018-07-18 01:33] LABS: Glucose,Whole Blood 289 mg/dL (75-99)
[2018-07-18] MEDS: SODIUM CHLORIDE 0.9% 1,000 ML IV SCH ×2 (05:04→17:33)
[2018-07-18 07:10] LABS: Glucose,Whole Blood 219 mg/dL (75-99)
[2018-07-18] MEDS: HEPARIN SODIUM,PORCINE 5,000 UNIT/ML 1 ML VIAL SQ SCH ×2 (08:26→19:47)
[2018-07-18] MEDS: INSULIN ASPART (NovoLOG) 100 UNIT/ML VIAL SQ SCH ×4 (08:26→21:22)
[2018-07-18] MEDS: LOSARTAN 50 MG TAB PO SCH (08:27)
[2018-07-18] MEDS: CHOLECALCIFEROL 1,000 UNIT TAB PO SCH (08:27)
[2018-07-18] MEDS: ATORVASTATIN 10 MG TAB PO SCH (08:27)
[2018-07-18] MEDS ORDERED: LOSARTAN 25 MG TAB PO SCH (09:00)
[2018-07-18 09:37] LABS: Anion Gap 8 mmol/L; Blood Urea Nitrogen 12 mg/dL (7-17); Calcium 9.6 mg/dL (8.4-10.2); Carbon Dioxide 28 mmol/L (22-30); Chloride 102 mmol/L (98-107); Glucose 262 mg/dL (74-99); Potassium 3.8 mmol/L (3.5-5.1); Sodium 138 mmol/L (137-145)
[2018-07-18] MEDS: TRIAMTERENE-HCTZ 37.5-25MG 1 EACH TAB PO SCH (09:51)
[2018-07-18] MEDS: INSULIN DETEMIR (LEVEMIR) 100 UNIT/ML SYR SQ SCH ×2 (09:51→21:22)
[2018-07-18 12:25] LABS: Glucose,Whole Blood 208 mg/dL (75-99)
[2018-07-18] MEDS: COLLAGENASE 250 UNIT/GM OINTMENT 30 GM TUBE TOPICAL SCH (12:56)
[2018-07-18 14:23] VITALS: BMI 35.2
--- NOTE | 2018-07-18 14:49 | CONS ---
DATE OF CONSULTATION: 07/18/2018 This is a 78-year-old female. Patient has been admitted with history of ulcer right ankle, lateral aspect for the past 2 months. Patient is known to me from my office. She had some outpatient workup, which we will review. She has been complaining of discomfort and pain in the right ankle because of this wound. MEDICAL HISTORY: History of diabetes, hypertension. PHYSICAL EXAMINATION: NECK: Supple. CHEST: Clear to auscultation. First and second sounds normal. ABDOMEN: Soft. Femorals are palpable, posterior not palpable. Patient has of both lower extremity. There is an ulcer on the lateral aspect of the right ankle. Measurement is 3 x 1 cm. Slight tenderness noted, but no discharge noted. PLAN: The patient is on IV antibiotic. We will do Santyl cream and compression wrap. We will follow with you. Eventually, patient will need venous study to check for the reflux of the femoral vein, popliteal vein, greater saphenous vein and short saphenous vein. We will continue this local wound care and we will do this workup as an outpatient. Eventually, patient will need some kind of endovenous laser. Will follow with you. MMODL / IJN: [id number] / MIMI
[2018-07-18 15:18] LABS: Hemoglobin A1C 11.2 % (4.0-6.0)
[2018-07-18 17:22] LABS: Glucose,Whole Blood 167 mg/dL (75-99)
[2018-07-18 21:11] LABS: Glucose,Whole Blood 175 mg/dL (75-99)
--- NOTE | 2018-07-18 22:58 | PN ---
PROGRESS NOTE ATTENDING PHYSICIAN: Dr. Navarro Pérez. CHIEF COMPLAINT: Re-evaluation. HISTORY OF PRESENT ILLNESS: This is a 78-year-old female who was admitted to the hospital with complaints of pain in the right leg. The patient noted to have elevated blood sugar. The patient has a history of diabetes mellitus that she had recently stopped taking her metformin because it was causing her some GI symptoms. She is having some increased pain. She seems to have a venous stasis ulceration, however, pedal pulses are weak. She is being evaluated by vascular. The pain is mostly with dependency. Does feel better if she elevates the leg. The patient recently was seen in the office last week and blood sugars done revealed a hemoglobin A1c of 9.1. The patient presents to the emergency room prior to reviewing the lab results with her. Reviewed this with the daughter who feels that the patient should have been on insulin the minute the patient's A1c came up to 9.1. However, explained to her that I did not have the results until this weekend. REVIEW OF SYSTEMS: NEURO: Denies any headaches, dizziness. PSYCH: No anxiety. CARDIAC: No chest pain, angina, palpitations. RESPIRATORY: Denies shortness of breath, cough. GI: No nausea, vomiting, abdominal pain, diarrhea. : No symptoms of dysuria or hematuria. EXTREMITIES: No pain or edema. CONSTITUTIONAL: No fever or chills. PHYSICAL EXAMINATION: Pleasant female in no distress. Vital signs reveals temperature 98, pulse 77, respirations 18, blood pressure 185/74, pulse ox is 98 percent on room air. HEENT: Normocephalic. NECK: No JVD. CHEST: Clear to auscultation and percussion. CARDIAC: Normal S1, S2 with no gallops, murmurs. ABDOMEN: Soft. No palpable masses. Bowel sounds normal. No organomegaly. No abdominal bruits. Extremities reveal no edema. Right leg has evidence of some superficial ulcerations. Neurologically awake, alert, oriented with well-coordinated movements. LABORATORY ASSESSMENT: Electrolytes normal. Blood sugar was 262. ASSESSMENT: 1. Right leg venous stasis ulceration. 2. Pain, right leg. 3. Diabetes mellitus with elevated blood sugars. 4. Hypertension. 5. History of chronic back pain. PLAN: Continue present medical regimen. Patient is on IV antibiotics. Vascular surgeon to see the patient. Empiric antibiotic has been started. Prognosis remains guarded. Condition of the patient discussed with the patient and daughter. MMGELACIO / IJN: [id number] /
[2018-07-19] MEDS: HYDROcodone/APAP 5-325MG 1 EACH TAB PO PRN (02:11)
[2018-07-19 07:12] LABS: Glucose,Whole Blood 178 mg/dL (75-99)
[2018-07-19] MEDS: ATORVASTATIN 10 MG TAB PO SCH (07:49)
[2018-07-19] MEDS: HEPARIN SODIUM,PORCINE 5,000 UNIT/ML 1 ML VIAL SQ SCH ×2 (07:49→20:03)
[2018-07-19] MEDS: INSULIN ASPART (NovoLOG) 100 UNIT/ML VIAL SQ SCH ×4 (07:49→21:02)
[2018-07-19] MEDS: TRIAMTERENE-HCTZ 37.5-25MG 1 EACH TAB PO SCH (07:49)
[2018-07-19] MEDS: LOSARTAN 50 MG TAB PO SCH (07:49)
[2018-07-19] MEDS: CHOLECALCIFEROL 1,000 UNIT TAB PO SCH (07:49)
[2018-07-19] MEDS: COLLAGENASE 250 UNIT/GM OINTMENT 30 GM TUBE TOPICAL SCH (07:50)
[2018-07-19] MEDS: traMADol 50 MG TAB PO PRN ×2 (07:55→15:25)
[2018-07-19 12:10] LABS: Glucose,Whole Blood 193 mg/dL (75-99)
--- NOTE | 2018-07-19 13:16 | PN ---
PROGRESS NOTE This is a 78-year-old female. She has venostasis of right lower extremity. Lateral aspect of the ankle with some swelling. The patient has some both lower extremities, most likely this is venostasis ulcer. PLAN: Plan is using Santyl cream. I advised her to see me next in my office. We do the venous mapping check for the in the femoral and greater saphenous vein. MMODL / IJN: [id number] /
[2018-07-19 17:15] LABS: Glucose,Whole Blood 175 mg/dL (75-99)
[2018-07-19 20:39] LABS: Glucose,Whole Blood 191 mg/dL (75-99)
[2018-07-19 22:46] VITALS: RESP 18
--- NOTE | 2018-07-19 22:59 | PN ---
PROGRESS NOTE CHIEF COMPLAINT: Re-evaluation. HISTORY OF PRESENT ILLNESS: This is a 78-year-old female who was admitted to the hospital with pain in the right leg. The patient has an ulceration, superficial, on the right lower leg. The patient has been evaluated by the vascular surgeon, and he feels this is more of a chronic venostasis ulcer. The patient says she has significant pain in the night with being tightly wrapped; however, would recommend that the patient not have any tight wraps. However, continue with the recommended Santyl application. REVIEW OF SYSTEMS: NEURO: Denies any headaches, dizziness. PSYCH: No anxiety, depression. CARDIAC: No chest pain, angina, palpitations. RESPIRATORY: No shortness of breath, cough, hemoptysis. GI: No nausea, vomiting, abdominal pain, diarrhea. : No symptoms of dysuria or hematuria. EXTREMITIES: Pain in right leg. CONSTITUTIONAL: No fever, chills. PHYSICAL EXAMINATION: Pleasant female in no distress. VITAL SIGNS: Temperature 98.3, pulse 71, respirations 20, blood pressure 167/93, pulse ox 97% on room air. HEENT: Normocephalic. NECK: No JVD. CHEST: Clear to auscultation and percussion. CARDIAC: Normal S1, S2 with no gallops or murmurs. ABDOMEN: Soft. No palpable masses. Bowel sounds normal. No organomegaly. No abdominal bruits. Extremities reveal trace edema, right leg. The patient has a superficial ulceration on the right leg. Neurologically awake, alert, oriented with well-coordinated movements. LABORATORY ASSESSMENT: Blood sugars in the 170s. ASSESSMENT: 1. Right leg chronic venostasis ulceration. 2. Diabetes mellitus. 3. Essential hypertension. PLAN: Patient is stable. Continue present medical regimen. Patient's condition discussed with the patient and Dr. Cardenas. Recommend that if patient remains stable, she can be discharged care. MMODL / IJN: [id number] /
[2018-07-20 06:08] VITALS: BP 143/65; PULSE 53; TEMP 97.9
[2018-07-20 06:57] LABS: Glucose,Whole Blood 216 mg/dL (75-99)
[2018-07-20] MEDS: CHOLECALCIFEROL 1,000 UNIT TAB PO SCH (07:41)
[2018-07-20] MEDS: ATORVASTATIN 10 MG TAB PO SCH (07:41)
[2018-07-20] MEDS: COLLAGENASE 250 UNIT/GM OINTMENT 30 GM TUBE TOPICAL SCH (07:41)
[2018-07-20] MEDS: HEPARIN SODIUM,PORCINE 5,000 UNIT/ML 1 ML VIAL SQ SCH (07:41)
[2018-07-20] MEDS: LOSARTAN 50 MG TAB PO SCH (07:41)
[2018-07-20] MEDS: TRIAMTERENE-HCTZ 37.5-25MG 1 EACH TAB PO SCH (07:42)
[2018-07-20] MEDS: INSULIN ASPART (NovoLOG) 100 UNIT/ML VIAL SQ SCH (07:42)
[2018-07-20] MEDS: traMADol 50 MG TAB PO PRN (08:43)
--- NOTE | 2018-07-20 12:10 | P.ARTDOP ---
Arterial Doppler LOWER EXTREMITY ARTERIAL DOPPLER: DATE OF SERVICE: 07/18/2018 Reason for study: Right leg ulcer. Doppler waveforms: Multiphasic throughout on the left. Multiphasic at the right femoral and atypical below.. Pulse volume recording: []. Pressure gradients: Above the knee on the right. Ankle-brachial indices: 0.92 on the right and greater than 1 on the left. Toe pressures: 120 on the right, 126 on the left Impression: Mild right fem-pop disease. Tissue perfusion probably adequate for healing. Normal on the left.
--- NOTE | 2018-07-20 23:21 | PN ---
PROGRESS NOTE ATTENDING PHYSICIAN: Dr. Siria Pérez. CHIEF COMPLAINT: Re-evaluation. HISTORY OF PRESENT ILLNESS: 78-year-old female was admitted to the hospital because of pain in the right leg and hyperglycemia. The patient's admitting physician felt the patient was in arterial insufficiency. However, the vascular surgeons evaluated the patient and has felt that there was some more venous insufficiency also. The patient actually feels better if he elevates the leg, which would indicate more venous insufficiency. The patient feels much better today. She did sleep through the night. She has pain which is controlled. Blood sugars are better. The patient, in view of this is going to be discharged home. Her blood sugars are still elevated but the glipizide will be increased to 5 mg b.i.d. She will also follow up in outpatient with diabetic education classes. REVIEW OF SYSTEMS: Neuro: Denies any headaches or dizziness. Psych: No anxiety. Cardiac: No chest pain, angina, palpitation. Respiratory: No shortness of breath, cough, hemoptysis. GI no nausea, vomiting, abdominal pain, diarrhea. no symptoms of dysuria, hematuria, urgency or frequency. Extremities: No pain or edema. CONSTITUTIONAL: No fever or chills. PHYSICAL EXAMINATION: Pleasant female. Temperature 97.9, pulse 53, respirations 18, blood pressure 143/65, pulse ox 100 percent on room air. HEENT: Normocephalic. Neck no JVD. CHEST: Clear to auscultation percussion Cardiac: Normal S1, S2 with no gallops, murmurs. ABDOMEN: Soft. Bowel sounds present. Extremities reveal trace edema at the ankles. Neurologically: Awake, alert, oriented. Skin reveals fairly well healing ulceration right bermudez area. ASSESSMENT: 1. Venous insufficiency ulceration, right leg. 2. Diabetes mellitus. 3. Essential hypertension. PLAN: The patient is stable. Continue present medical regimen. Patient's condition discussed with the patient. Prognosis guarded. Patient will be discharged home to be followed up in the outpatient by Dr. Barbosa. ADEOLA / CRISTINA: [id number] /
== END 2018-07-20 11:42 | disposition home or self-care (01) | DRG 638 ==
LOC: EC 13:06 → 4SSUR 17:54 → 4MS4W 07-18 07:28
PROVIDERS: ADMIT Internal Medicine; ATTEND Internal Medicine
DX: E11.65 Type 2 diabetes mellitus with hyperglycemia (principal); I83.213 Varicose veins of right lower extremity with both ulcer of ankle and inflammation; L97.319 Non-pressure chronic ulcer of right ankle with unspecified severity; N39.0 Urinary tract infection, site not specified; E78.5 Hyperlipidemia, unspecified; I11.9 Hypertensive heart disease without heart failure; M17.11 Unilateral primary osteoarthritis, right knee; Z68.35 Body mass index [BMI] 35.0-35.9, adult; Z79.899 Other long term (current) drug therapy; Z96.652 Presence of left artificial knee joint; Z82.3 Family history of stroke
CPT/HCPCS: 36415; 80048; 80053; 81001; 82009; 83036; 83605; 85025; 85610; 85730; 87040; 87070; 87086; 87205; 93005; 93923; 96361; 96374; 96375; 99285

== ENCOUNTER 2018-08-16 12:01 | Emergency (ER) | payer MEDICARE ==
[2018-08-16 12:20] VITALS: TEMP 98.8
[2018-08-16] MEDS ORDERED: SODIUM CHLORIDE 0.9% 500 ML 500 ML IV STA (12:29)
[2018-08-16 13:07] LABS: Basophils % (A) 0 %; Eosinophils # (A) 0.2 k/uL (0-0.7); Eosinophils % (A) 2 %; HCT 36.6 % (34.0-46.0); HGB 12.1 gm/dL (11.4-16.0); Lymphocytes # (A) 2.3 k/uL (1.0-4.8); Lymphocytes % (A) 24 %; MCH 28.6 pg (25.0-35.0); MCHC 33.1 g/dL (31.0-37.0); MCV 86.4 fL (80.0-100.0); Mean Platelet Volume 7.4; Monocytes # (A) 0.4 k/uL (0-1.0); Monocytes % (A) 4 %; Neutrophils # (A) 6.5 k/uL (1.3-7.7); Neutrophils % (A) 68 %; Platelet Count 207 k/uL (150-450); RBC 4.23 m/uL (3.80-5.40); RDW 13.2 % (11.5-15.5); WBC 9.6 k/uL (3.8-10.6)
[2018-08-16 13:14] LABS: Appearance,Urine Clear (Clear); Bacteria,Urine Rare /hpf; Bilirubin,Urine Negative (Negative); Blood,Urine Negative (Negative); Color,Urine Yellow; Glucose,Urine (UA) 4+ (Negative); Ketones,Urine Negative (Negative); Leukocyte Esterase,Urine Moderate (Negative); Nitrite,Urine Negative (Negative); PH, Urine 6.5 (5.0-8.0); Protein,Urine Negative (Negative); Specific Gravity,Urine 1.012 (1.001-1.035); Squamous Epithelial Cell,Urine 5 /hpf (0-4); Urobilinogen,Urine <2.0 mg/dL (<2.0); WBC,Urine 4 /hpf (0-5)
--- NOTE | 2018-08-16 13:24 | ED ---
Recheck HPI - General Chief Complaint: Recheck/Abnormal Lab/Rx Stated Complaint: High sugar Time Seen by Provider: 08/16/18 12:27 Source: patient Mode of arrival: wheelchair Limitations: no limitations - History of Present Illness Initial Comments: 78-year-old female presenting today for chief complaint of elevated glucose. She has no diabetes. Patient states she has had GI upset and nausea when she takes her metformin. Patient stopped taking metformin for Wednesday and Wednesday. She is due metformin after she saw Dr. Pérez on Wednesday. She was notified today that her blood glucose was greater than 500. Patient was sent to the emergency department to be on the safe side" by primary care provider according to patient. Patient denies any current symptoms, she states she has had nausea associated with taking her metformin aside from that and states she feels well. Patient took metformin earlier today. Remaining ROS (-), patient denies any rec ent fever, chills, shortness of breath, chest pain, back pain, abdominal pain, nausea or vomiting, numbness or tingling, dysuria or hematuria, constipation or diarrhea, headaches or visual changes, or any other complaints. - Related Data Home Medications Medication Instructions Recorded Confirmed Atorvastatin [Lipitor] 10 mg PO HS 05/04/14 08/16/18 Losartan [Cozaar] 25 mg PO DAILY 05/04/14 08/16/18 Triamterene/Hydrochlorothiazid 1 tab PO Q48H 09/16/17 08/16/18 [Triamterene-Hctz 37.5-25 mg Tb] Cholecalciferol (Vitamin D3) 2,000 unit PO DAILY 07/17/18 08/16/18 [Vitamin D3] Collagenase [Santyl] 1 applic TOPICAL DAILY 08/16/18 08/16/18 Previous Rx's Medication Instructions Recorded glipiZIDE [Glucotrol] 5 mg PO AC-BID #60 tab 07/20/18 traMADol HCl [Ultram] 50 mg PO QID PRN #50 tab 07/20/18 Allergies Allergy/AdvReac Type Severity Reaction Status Date / Time No Known Allergies Allergy Verified 08/16/18 12:58 Review of Systems ROS Statement: Those systems with pertinent positive or pertinent negative responses have been documented in the HPI. ROS Other: All systems not noted in ROS Statement are negative. Past Medical History Past Medical History: Hyperlipidemia, Hypertension Additional Past Medical History / Comment(s): 06/12/14 Pt admitted to floor s/p Total L knee arthroplasty. Other HX: DIABETES (NO LONGER ON MEDS), PAIN RT SHOULDER FROM FALL -RECEIVED CORTISONE INJECTION 06/07/14. ARTHRITIS ILIANA KNEES. History of Any Multi-Drug Resistant Organisms: None Reported Past Surgical History: Back Surgery Additional Past Surgical History / Comment(s): 06/12/14 Total L knee arthroplasty. D & C Past Anesthesia/Blood Transfusion Reactions: No Reported Reaction Past Psychological History: No Psychological Hx Reported Smoking Status: Never smoker Past Alcohol Use History: None Reported Past Drug Use History: None Reported - Past Family History Mother Family Medical History: No Reported History, CVA/TIA Father Family Medical History: CVA/TIA General Exam - General Exam Comments Initial Comments: General: The patient is awake and alert, in no distress, and does not appear acutely ill. Eye: Pupils are equal, round and reactive to light, extra-ocular movements are intact. No nystagmus. There is normal conjunctiva bilaterally. No signs of icterus. Ears, nose, mouth and throat: There are moist mucous membranes and no oral lesions. Neck: The neck is supple, there is no tenderness or JVD. Cardiovascular: There is a regular rate and rhythm. No murmur, rub or gallop is appreciated. Respiratory: Lungs are clear to auscultation, respirations are non-labored, breath sounds are equal. No wheezes, stridor, rales, or rhonchi. Gastrointestinal: Soft, non-distended, non-tender abdomen without masses or organomegaly noted. There is no rebound or guarding present. Musculoskeletal: Normal ROM, no tenderness. Strength 5/5. Sensation intact. Pulses equal bilaterally 2+. Neurological: A&O x 3. CN II-XII intact, There are no obvious motor or sensory deficits. Coordination appears grossly intact. Speech is normal. Skin: Skin is warm and dry and no rashes or lesions are noted. No lower extremity edema Psychiatric: Cooperative, appropriate mood & affect, normal judgment. Limitations: no limitations Course Vital Signs 08/16/18 08/16/18 12:16 15:29 Temperature 98.8 F Pulse Rate 90 83 Respiratory 16 18 Rate Blood Pressure 123/76 159/86 O2 Sat by Pulse 98 98 Oximetry Medical Decision Making - Medical Decision Making Well-appearing 78-year-old female presented for elevated blood glucose of by primary care provider. Patient denies symptoms. Acetone negative. Anion gap within normal limits. No ketones in urine. Glucose elevated ~350. Magnesium low at 1.2 replaced orally. Patient given subcutaneous insulin as well as IV fluids. Repeat blood glucose improved. Patient requesting discharge. After discussing case with attending provider, patient will be discharged with outpatient follow-up with Dr. Pérez. Patient states she is going to a diabetes class on Wednesday. I did educated patient on the importance of diabetes management, diet and exercise for at total of 10-15 minutes prior to patient discharge. - Lab Data Result diagrams: 08/16/18 12:40 08/16/18 12:40 Lab Results 08/16/18 08/16/18 08/16/18 Range/Units 12:40 12:40 12:40 WBC 9.6 (3.8-10.6) k/uL RBC 4.23 (3.80-5.40) m/uL Hgb 12.1 (11.4-16.0) gm/dL Hct 36.6 (34.0-46.0) % MCV 86.4 (80.0-100.0) fL MCH 28.6 (25.0-35.0) pg MCHC 33.1 (31.0-37.0) g/dL RDW 13.2 (11.5-15.5) % Plt Count 207 (150-450) k/uL Neutrophils % 68 % Lymphocytes % 24 % Monocytes % 4 % Eosinophils % 2 % Basophils % 0 % Neutrophils # 6.5 (1.3-7.7) k/uL Lymphocytes # 2.3 (1.0-4.8) k/uL Monocytes # 0.4 (0-1.0) k/uL Eosinophils # 0.2 (0-0.7) k/uL Basophils # 0.0 (0-0.2) k/uL Sodium 136 L (137-145) mmol/L Potassium 4.7 (3.5-5.1) mmol/L Chloride 101 (98-107) mmol/L Carbon Dioxide 23 (22-30) mmol/L Anion Gap 12 mmol/L BUN 24 H (7-17) mg/dL Creatinine 0.94 (0.52-1.04) mg/dL Est GFR (CKD-EPI)AfAm 68 (>60 ml/min/1.73 sqM) Est GFR (CKD-EPI)NonAf 59 (>60 ml/min/1.73 sqM) Glucose 368 H (74-99) mg/dL POC Glucose (mg/dL) (75-99) mg/dL POC Glu Automatic Packer Operator ID Calcium 10.3 H (8.4-10.2) mg/dL Phosphorus 3.1 (2.5-4.5) mg/dL Magnesium 1.2 L (1.6-2.3) mg/dL Total Bilirubin 0.6 (0.2-1.3) mg/dL AST 26 (14-36) U/L ALT 29 (9-52) U/L Alkaline Phosphatase 104 (38-126) U/L Total Protein 8.2 (6.3-8.2) g/dL Albumin 4.5 (3.5-5.0) g/dL Urine Color Yellow Urine Appearance Clear (Clear) Urine pH 6.5 (5.0-8.0) Ur Specific [place] 1.012 (1.001-1.035) Urine Protein Negative (Negative) Urine Glucose (UA) 4+ H (Negative) Urine Ketones Negative (Negative) Urine Blood Negative (Negative) Urine Nitrite Negative (Negative) Urine Bilirubin Negative (Negative) Urine Urobilinogen <2.0 (<2.0) mg/dL Ur Leukocyte Esterase Moderate H (Negative) Urine WBC 4 (0-5) /hpf Ur Squamous Epith Cells 5 H (0-4) /hpf Urine Bacteria Rare H (None) /hpf Acetone, Qual Negative (Negative) 08/16/18 Range/Units 15:47 WBC (3.8-10.6) k/uL RBC (3.80-5.40) m/uL Hgb (11.4-16.0) gm/dL Hct (34.0-46.0) % MCV (80.0-100.0) fL MCH (25.0-35.0) pg MCHC (31.0-37.0) g/dL RDW (11.5-15.5) % Plt Count (150-450) k/uL Neutrophils % % Lymphocytes % % Monocytes % % Eosinophils % % Basophils % % Neutrophils # (1.3-7.7) k/uL Lymphocytes # (1.0-4.8) k/uL Monocytes # (0-1.0) k/uL Eosinophils # (0-0.7) k/uL Basophils # (0-0.2) k/uL Sodium (137-145) mmol/L Potassium (3.5-5.1) mmol/L Chloride (98-107) mmol/L Carbon Dioxide (22-30) mmol/L Anion Gap mmol/L BUN (7-17) mg/dL Creatinine (0.52-1.04) mg/dL Est GFR (CKD-EPI)AfAm (>60 ml/min/1.73 sqM) Est GFR (CKD-EPI)NonAf (>60 ml/min/1.73 sqM) Glucose (74-99) mg/dL POC Glucose (mg/dL) 321 H (75-99) mg/dL POC Glu Automatic Packer Operator ID Kayley Alvarez Calcium (8.4-10.2) mg/dL Phosphorus (2.5-4.5) mg/dL Magnesium (1.6-2.3) mg/dL Total Bilirubin (0.2-1.3) mg/dL AST (14-36) U/L ALT (9-52) U/L Alkaline Phosphatase (38-126) U/L Total Protein (6.3-8.2) g/dL Albumin (3.5-5.0) g/dL Urine Color Urine Appearance (Clear) Urine pH (5.0-8.0) Ur Specific [place] (1.001-1.035) Urine Protein (Negative) Urine Glucose (UA) (Negative) Urine Ketones (Negative) Urine Blood (Negative) Urine Nitrite (Negative) Urine Bilirubin (Negative) Urine Urobilinogen (<2.0) mg/dL Ur Leukocyte Esterase (Negative) Urine WBC (0-5) /hpf Ur Squamous Epith Cells (0-4) /hpf Urine Bacteria (None) /hpf Acetone, Qual (Negative) Disposition Clinical Impression: Blood glucose elevated, Low magnesium level Disposition: HOME SELF-CARE Condition: Good Instructions (If sedation given, give patient instructions): Type 2 Diabetes in the Older Adult (ED), Diabetes and Nutrition (ED), Diabetes and Exercise (ED) Additional Instructions: Please use medication as discussed. Please follow-up with family doctor in the next 2 days for repeat laboratory studies, and diabetic management/counseling. Please return to emergency room if the symptoms increase or worsen or for any other concerns. Is patient prescribed a controlled substance at d/c from ED?: No Referrals: Eduard Pérez MD [Primary Care Provider] - 1-2 days Time of Disposition: 16:03
[2018-08-16 13:32] LABS: ALT 29 U/L (9-52); AST 26 U/L (14-36); Albumin 4.5 g/dL (3.5-5.0); Alkaline Phosphatase 104 U/L (38-126); Anion Gap 12 mmol/L; Blood Urea Nitrogen 24 mg/dL (7-17); Calcium 10.3 mg/dL (8.4-10.2); Carbon Dioxide 23 mmol/L (22-30); Chloride 101 mmol/L (98-107); Glucose 368 mg/dL (74-99); Magnesium 1.2 mg/dL (1.6-2.3); Phosphorus 3.1 mg/dL (2.5-4.5); Sodium 136 mmol/L (137-145); Total Bilirubin 0.6 mg/dL (0.2-1.3); Total Protein 8.2 g/dL (6.3-8.2)
[2018-08-16 13:42] LABS: Potassium 4.7 mmol/L (3.5-5.1)
[2018-08-16] MEDS ORDERED: MAGNESIUM OXIDE 400 MG TAB PO STA (13:49)
[2018-08-16] MEDS ORDERED: INSULIN REGULAR 100 UNIT/ML VIAL SQ ONE (13:49)
[2018-08-16 15:49] LABS: Glucose,Whole Blood 321 mg/dL (75-99)
[2018-08-16 16:42] VITALS: BP 169/81; PULSE 81; RESP 16
== END 2018-08-16 16:54 | disposition home or self-care (01) ==
LOC: EC 12:01
DX: E11.65 Type 2 diabetes mellitus with hyperglycemia (principal); E83.42 Hypomagnesemia; E78.5 Hyperlipidemia, unspecified; M17.0 Bilateral primary osteoarthritis of knee; I10 Essential (primary) hypertension; Z79.84 Long term (current) use of oral hypoglycemic drugs; Z79.899 Other long term (current) drug therapy; Z96.652 Presence of left artificial knee joint
CPT/HCPCS: 36415; 80053; 81001; 82009; 83735; 84100; 85025; 96360; 96361; 99283

== ENCOUNTER 2018-11-12 18:58 | Emergency (ER) | payer MEDICARE ==
[2018-11-12 19:31] VITALS: RESP 18
[2018-11-12] MEDS ORDERED: SODIUM CHLORIDE 0.9% 1,000 ML IV ONE (19:35)
[2018-11-12 19:38] LABS: Glucose,Whole Blood 595 mg/dL (75-99)
[2018-11-12 20:18] LABS: Basophils % (A) 0 %; Eosinophils # (A) 0.2 k/uL (0-0.7); Eosinophils % (A) 3 %; HCT 37.8 % (34.0-46.0); Lymphocytes # (A) 1.8 k/uL (1.0-4.8); Lymphocytes % (A) 25 %; MCHC 31.6 g/dL (31.0-37.0); MCV 88.6 fL (80.0-100.0); Mean Platelet Volume 8.9; Monocytes # (A) 0.3 k/uL (0-1.0); Monocytes % (A) 4 %; Neutrophils # (A) 4.9 k/uL (1.3-7.7); Neutrophils % (A) 66 %; Platelet Count 147 k/uL (150-450); RBC 4.27 m/uL (3.80-5.40); RDW 14.1 % (11.5-15.5); WBC 7.4 k/uL (3.8-10.6)
[2018-11-12 20:22] LABS: Appearance,Urine Clear (Clear); Bilirubin,Urine Negative (Negative); Blood,Urine Negative (Negative); Color,Urine Light Yellow; Glucose,Urine (UA) 4+ (Negative); Ketones,Urine Negative (Negative); Leukocyte Esterase,Urine Trace (Negative); Mucus,Urine Rare /hpf; Nitrite,Urine Negative (Negative); Protein,Urine Negative (Negative); RBC,Urine 2 /hpf (0-5); Specific Gravity,Urine 1.031 (1.001-1.035); Squamous Epithelial Cell,Urine <1 /hpf (0-4); Urobilinogen,Urine <2.0 mg/dL (<2.0); WBC,Urine 7 /hpf (0-5)
[2018-11-12 20:30] LABS: ALT 60 U/L (9-52); AST 58 U/L (14-36); African American GFR (CKD) >90 (>60 ml/min/1.73 sqM); Alkaline Phosphatase 288 U/L (38-126); Anion Gap 12 mmol/L; Blood Urea Nitrogen 11 mg/dL (7-17); Calcium 10.2 mg/dL (8.4-10.2); Carbon Dioxide 27 mmol/L (22-30); Chloride 95 mmol/L (98-107); Potassium 3.5 mmol/L (3.5-5.1); Sodium 134 mmol/L (137-145); Total Bilirubin 0.5 mg/dL (0.2-1.3); Total Protein 7.4 g/dL (6.3-8.2)
[2018-11-12] MEDS ORDERED: INSULIN REGULAR 100 UNIT/ML VIAL SQ ONE ×2 (20:41→22:16)
[2018-11-12 20:52] LABS: Glucose 604 mg/dL (74-99)
[2018-11-12 22:13] LABS: Glucose,Whole Blood 425 mg/dL (75-99)
--- NOTE | 2018-11-12 22:17 | ED ---
Recheck HPI - General Source: patient, family Mode of arrival: wheelchair Limitations: no limitations <Darshana Mercedes - Last Filed: 11/13/18 00:15> <Brisa Gee - Last Filed: 11/13/18 05:28> - General Chief Complaint: Recheck/Abnormal Lab/Rx Stated Complaint: High sugar Time Seen by Provider: 11/12/18 19:34 - History of Present Illness Initial Comments: 78yofemale with history of DMII presenting for cc of elevated blood glucose. States running > 500 today. Patient denies URI symptoms, dysuria, urgency, frequency, denies abdominal pain, chest pain or SOB. Patient has no other complaints. Appears well VS reveal elevated BP upon arrival. (Darshana Mercedes) - Related Data Home Medications Medication Instructions Recorded Confirmed Atorvastatin [Lipitor] 10 mg PO HS 05/04/14 11/12/18 Losartan [Cozaar] 25 mg PO DAILY 05/04/14 11/12/18 Triamterene/Hydrochlorothiazid 1 tab PO Q48H 09/16/17 11/12/18 [Triamterene-Hctz 37.5-25 mg Tb] Cholecalciferol (Vitamin D3) 2,000 unit PO DAILY 07/17/18 11/12/18 [Vitamin D3] Collagenase [Santyl] 1 applic TOPICAL DAILY PRN 08/16/18 11/12/18 Insulin Glargine,Hum.rec.anlog 26 unit SQ DAILY 11/12/18 11/12/18 [Lantus Solostar] Previous Rx's Medication Instructions Recorded glipiZIDE [Glucotrol] 5 mg PO AC-BID #60 tab 07/20/18 Allergies Allergy/AdvReac Type Severity Reaction Status Date / Time No Known Allergies Allergy Verified 11/12/18 23:06 Review of Systems ROS Other: All systems not noted in ROS Statement are negative. <Darshana Mercedes - Last Filed: 11/13/18 00:15> ROS Other: All systems not noted in ROS Statement are negative. <Brisa Gee - Last Filed: 11/13/18 05:28> ROS Statement: Those systems with pertinent positive or pertinent negative responses have been documented in the HPI. Past Medical History Past Medical History: Diabetes Mellitus, Hyperlipidemia, Hypertension Additional Past Medical History / Comment(s): 06/12/14 Pt admitted to floor s/p Total L knee arthroplasty. Other HX: DIABETES (NO LONGER ON MEDS), PAIN RT SHOULDER FROM FALL -RECEIVED CORTISONE INJECTION 06/07/14. ARTHRITIS ILIANA KNEES. History of Any Multi-Drug Resistant Organisms: None Reported Past Surgical History: Back Surgery Additional Past Surgical History / Comment(s): 06/12/14 Total L knee arthroplasty. D & C Past Anesthesia/Blood Transfusion Reactions: No Reported Reaction Past Psychological History: No Psychological Hx Reported Smoking Status: Never smoker - Past Family History Mother Family Medical History: No Reported History, CVA/TIA Father Family Medical History: CVA/TIA <Darshana Mercedes - Last Filed: 11/13/18 00:15> General Exam Limitations: no limitations <Darshana Mercedes - Last Filed: 11/13/18 00:15> - General Exam Comments Initial Comments: General: The patient is awake and alert, in no distress, and does not appear acutely ill. Eye: Pupils are equal, round and reactive to light, extra-ocular movements are intact. No nystagmus. There is normal conjunctiva bilaterally. No signs of icterus. Ears, nose, mouth and throat: There are moist mucous membranes and no oral lesions. Neck: The neck is supple, there is no tenderness or JVD. Cardiovascular: There is a regular rate and rhythm. No murmur, rub or gallop is appreciated. Respiratory: Lungs are clear to auscultation, respirations are non-labored, breath sounds are equal. No wheezes, stridor, rales, or rhonchi. Gastrointestinal: Soft, non-distended, non-tender abdomen without masses or organomegaly noted. There is no rebound or guarding present. Bowel sounds are unremarkable. Musculoskeletal: Normal ROM, no tenderness. Strength 5/5. Sensation intact. Pulses equal bilaterally 2+. Neurological: A&O x 3. CN II-XII intact, There are no obvious motor or sensory deficits. Coordination appears grossly intact. Speech is normal. Skin: Skin is warm and dry and no rashes or lesions are noted. Psychiatric: Cooperative, appropriate mood & affect, normal judgment. (Darshana Mercedes) Course Vital Signs 11/12/18 11/12/18 11/13/18 19:23 21:12 00:54 Temperature 98.0 F Pulse Rate 89 89 74 Respiratory 18 18 18 Rate Blood Pressure 150/84 170/73 150/66 O2 Sat by Pulse 98 98 97 Oximetry 11/13/18 02:17 Temperature 98.1 F Pulse Rate 71 Respiratory 18 Rate Blood Pressure 165/67 O2 Sat by Pulse 99 Oximetry Medical Decision Making - Lab Data Result diagrams: 11/12/18 20:05 11/12/18 20:05 <Darshana Mercedes - Last Filed: 11/13/18 00:15> - Lab Data Result diagrams: 11/12/18 20:05 11/12/18 20:05 <Brisa Gee - Last Filed: 11/13/18 05:28> - Medical Decision Making Well appearing 78-year-old female presents for elevated blood glucose. No findings on physical examination insistent with localized infection.Patient appears well, afebrile. No history of fever. Transaminases and alk phos are elevated remaining laboratory studies unremarkable. No RUQ or epigastric tenderness on exam appreciated. Pt denies pain. No jaundice. Patient given SQ insulin. Insulin is trending downward. Pt given additional fluids to help with decrease of blood glucose. No evidence of HUS or DKA. (Darshana Mercedes) Assault, patient's glucose improving significantly in the 600s to the high 200s, at this time I don't give the patient additional insulin as I fear her blood glucose will drop precipitously therefore we'll discharge her home. Advised to monitor her glucose outpatient. (Brisa Gee) - Lab Data Lab Results 11/12/18 11/12/18 11/12/18 Range/Units 19:31 20:05 20:05 WBC 7.4 (3.8-10.6) k/uL RBC 4.27 (3.80-5.40) m/uL Hgb 12.0 (11.4-16.0) gm/dL Hct 37.8 (34.0-46.0) % MCV 88.6 (80.0-100.0) fL MCH 28.0 (25.0-35.0) pg MCHC 31.6 (31.0-37.0) g/dL RDW 14.1 (11.5-15.5) % Plt Count 147 L (150-450) k/uL Neutrophils % 66 % Lymphocytes % 25 % Monocytes % 4 % Eosinophils % 3 % Basophils % 0 % Neutrophils # 4.9 (1.3-7.7) k/uL Lymphocytes # 1.8 (1.0-4.8) k/uL Monocytes # 0.3 (0-1.0) k/uL Eosinophils # 0.2 (0-0.7) k/uL Basophils # 0.0 (0-0.2) k/uL Sodium 134 L (137-145) mmol/L Potassium 3.5 (3.5-5.1) mmol/L Chloride 95 L (98-107) mmol/L Carbon Dioxide 27 (22-30) mmol/L Anion Gap 12 mmol/L BUN 11 (7-17) mg/dL Creatinine 0.70 (0.52-1.04) mg/dL Est GFR (CKD-EPI)AfAm >90 (>60 ml/min/1.73 sqM) Est GFR (CKD-EPI)NonAf 84 (>60 ml/min/1.73 sqM) Glucose 604 H* (74-99) mg/dL POC Glucose (mg/dL) 595 H (75-99) mg/dL POC Glu Uptwister Tender ID Mony Altamirano Calcium 10.2 (8.4-10.2) mg/dL Total Bilirubin 0.5 (0.2-1.3) mg/dL AST 58 H (14-36) U/L ALT 60 H (9-52) U/L Alkaline Phosphatase 288 H (38-126) U/L Total Protein 7.4 (6.3-8.2) g/dL Albumin 4.0 (3.5-5.0) g/dL Urine Color Urine Appearance (Clear) Urine pH (5.0-8.0) Ur Specific [place] (1.001-1.035) Urine Protein (Negative) Urine Glucose (UA) (Negative) Urine Ketones (Negative) Urine Blood (Negative) Urine Nitrite (Negative) Urine Bilirubin (Negative) Urine Urobilinogen (<2.0) mg/dL Ur Leukocyte Esterase (Negative) Urine RBC (0-5) /hpf Urine WBC (0-5) /hpf Ur Squamous Epith Cells (0-4) /hpf Urine Mucus (None) /hpf Acetone, Qual Negative (Negative) 11/12/18 11/12/18 11/13/18 Range/Units 20:05 22:12 00:04 WBC (3.8-10.6) k/uL RBC (3.80-5.40) m/uL Hgb (11.4-16.0) gm/dL Hct (34.0-46.0) % MCV (80.0-100.0) fL MCH (25.0-35.0) pg MCHC (31.0-37.0) g/dL RDW (11.5-15.5) % Plt Count (150-450) k/uL Neutrophils % % Lymphocytes % % Monocytes % % Eosinophils % % Basophils % % Neutrophils # (1.3-7.7) k/uL Lymphocytes # (1.0-4.8) k/uL Monocytes # (0-1.0) k/uL Eosinophils # (0-0.7) k/uL Basophils # (0-0.2) k/uL Sodium (137-145) mmol/L Potassium (3.5-5.1) mmol/L Chloride (98-107) mmol/L Carbon Dioxide (22-30) mmol/L Anion Gap mmol/L BUN (7-17) mg/dL Creatinine (0.52-1.04) mg/dL Est GFR (CKD-EPI)AfAm (>60 ml/min/1.73 sqM) Est GFR (CKD-EPI)NonAf (>60 ml/min/1.73 sqM) Glucose (74-99) mg/dL POC Glucose (mg/dL) 425 H 339 H (75-99) mg/dL POC Glu Uptwister Tender ID Caron Meyers Jessica Calcium (8.4-10.2) mg/dL Total Bilirubin (0.2-1.3) mg/dL AST (14-36) U/L ALT (9-52) U/L Alkaline Phosphatase (38-126) U/L Total Protein (6.3-8.2) g/dL Albumin (3.5-5.0) g/dL Urine Color Light Yellow Urine Appearance Clear (Clear) Urine pH 6.0 (5.0-8.0) Ur Specific [place] 1.031 (1.001-1.035) Urine Protein Negative (Negative) Urine Glucose (UA) 4+ H (Negative) Urine Ketones Negative (Negative) Urine Blood Negative (Negative) Urine Nitrite Negative (Negative) Urine Bilirubin Negative (Negative) Urine Urobilinogen <2.0 (<2.0) mg/dL Ur Leukocyte Esterase Trace H (Negative) Urine RBC 2 (0-5) /hpf Urine WBC 7 H (0-5) /hpf Ur Squamous Epith Cells <1 (0-4) /hpf Urine Mucus Rare H (None) /hpf Acetone, Qual (Negative) 11/13/18 Range/Units 01:20 WBC (3.8-10.6) k/uL RBC (3.80-5.40) m/uL Hgb (11.4-16.0) gm/dL Hct (34.0-46.0) % MCV (80.0-100.0) fL MCH (25.0-35.0) pg MCHC (31.0-37.0) g/dL RDW (11.5-15.5) % Plt Count (150-450) k/uL Neutrophils % % Lymphocytes % % Monocytes % % Eosinophils % % Basophils % % Neutrophils # (1.3-7.7) k/uL Lymphocytes # (1.0-4.8) k/uL Monocytes # (0-1.0) k/uL Eosinophils # (0-0.7) k/uL Basophils # (0-0.2) k/uL Sodium (137-145) mmol/L Potassium (3.5-5.1) mmol/L Chloride (98-107) mmol/L Carbon Dioxide (22-30) mmol/L Anion Gap mmol/L BUN (7-17) mg/dL Creatinine (0.52-1.04) mg/dL Est GFR (CKD-EPI)AfAm (>60 ml/min/1.73 sqM) Est GFR (CKD-EPI)NonAf (>60 ml/min/1.73 sqM) Glucose (74-99) mg/dL POC Glucose (mg/dL) 295 H (75-99) mg/dL POC Glu Uptwister Tender ID Caron Meyers Calcium (8.4-10.2) mg/dL Total Bilirubin (0.2-1.3) mg/dL AST (14-36) U/L ALT (9-52) U/L Alkaline Phosphatase (38-126) U/L Total Protein (6.3-8.2) g/dL Albumin (3.5-5.0) g/dL Urine Color Urine Appearance (Clear) Urine pH (5.0-8.0) Ur Specific [place] (1.001-1.035) Urine Protein (Negative) Urine Glucose (UA) (Negative) Urine Ketones (Negative) Urine Blood (Negative) Urine Nitrite (Negative) Urine Bilirubin (Negative) Urine Urobilinogen (<2.0) mg/dL Ur Leukocyte Esterase (Negative) Urine RBC (0-5) /hpf Urine WBC (0-5) /hpf Ur Squamous Epith Cells (0-4) /hpf Urine Mucus (None) /hpf Acetone, Qual (Negative) Disposition Is patient prescribed a controlled substance at d/c from ED?: No Time of Disposition: 23:09 <Darshana Mercedes L - Last Filed: 11/13/18 00:15> Is patient prescribed a controlled substance at d/c from ED?: No <Brisa Gee P - Last Filed: 11/13/18 05:28> Clinical Impression: Blood glucose elevated, Elevated alkaline phosphatase level, Elevated transaminase level Disposition: HOME SELF-CARE Condition: Good Instructions (If sedation given, give patient instructions): Diabetes and Nutrition (ED), Diabetes and Exercise (ED) Additional Instructions: Please use medication as discussed. Please follow-up with family doctor on as scheduled. Please return to emergency room if the symptoms increase or worsen or for any other concerns. Referrals: Eduard Pérez MD [Primary Care Provider] - 1-2 days
[2018-11-13 00:06] LABS: Glucose,Whole Blood 339 mg/dL (75-99)
[2018-11-13] MEDS ORDERED: SODIUM CHLORIDE 0.9% 500 ML 500 ML IV ONE (00:14)
[2018-11-13 01:22] LABS: Glucose,Whole Blood 295 mg/dL (75-99)
[2018-11-13 02:19] VITALS: BP 165/67; PULSE 71; TEMP 98.1
== END 2018-11-13 02:19 | disposition home or self-care (01) ==
LOC: EC 18:58
DX: E11.9 Type 2 diabetes mellitus without complications (principal); R74.8 Abnormal levels of other serum enzymes; E78.5 Hyperlipidemia, unspecified; I10 Essential (primary) hypertension; Z79.4 Long term (current) use of insulin; Z79.899 Other long term (current) drug therapy; Z96.652 Presence of left artificial knee joint
CPT/HCPCS: 36415; 80053; 81001; 82009; 85025; 96360; 96361; 99283

== ENCOUNTER → 2018-12-02 | Outpatient (CLI) | payer MEDICARE ==
--- NOTE | 2018-12-02 17:11 | CT ---
EXAMINATION TYPE: CT abdomen pelvis wo con DATE OF EXAM: 12/02/2018 COMPARISON: Prior CT 09/16/2017 HISTORY: Abnormal weight loss, 30 pounds since August, abdominal pain. CT DLP: 961.90 mGycm Automated exposure control for dose reduction was used. TECHNIQUE: Helical acquisition of images from the lung bases through the pelvis.Oral contrast given FINDINGS: Lack of intravenous contrast could compromise sensitivity of the exam. LUNG BASES: No significant abnormality is appreciated. AORTA: No significant abnormality is appreciataed. LIVER/GB: There are low dense foci within the right lobe of the liver towards the dome posteriorly me asuring approximately 2.2 cm, additional poorly defined lesions are present within the right lobe of the liver PANCREAS: The head of the pancreas shows a low dense mass measuring approximately 4.8 cm. SPLEEN: No significant abnormality is seen. ADRENALS: No significant abnormality is seen. KIDNEYS: No significant abnormality is seen. REPRODUCTIVE ORGANS: Large calcifications are compatible with fibroid within the uterus. URINARY BLADDER: No significant abnormality is seen. BOWEL: There is no evident bowel obstruction. FREE AIR: No Free Air is visible. ASCITES: None visible. PELVIC ADENOPATHY: None visualized. RETROPERITONEAL ADENOPATHY: No Retroperitoneal Adenopathy visible. OSSEOUS STRUCTURES: Postop changes are noted status post posterior lumbosacral fusion. IMPRESSION: METASTATIC PANCREATIC CARCINOMA. NONCONTRAST EXAM. A Yellow level critical message alert has been initiated for Eduard Pérez MD via the [employer] Critical Results System on 12/02/2018 5:08 PM. This message alert has been sent to Eduard Pérez MD via the preferences provided by the clinician for the receipt of Radiology Critical Findings. Message ID [id number].
== END | disposition home or self-care (01) ==
LOC: RADCTMAIN 14:44
PROVIDERS: ATTEND Internal Medicine
DX: C25.9 Malignant neoplasm of pancreas, unspecified (principal)
CPT/HCPCS: 36415; 74176; 82565; 84520

== ENCOUNTER 2019-01-18 06:42 | Emergency (ER) | payer MEDICARE ==
[2019-01-18] MEDS ORDERED: SODIUM CHLORIDE 0.9% 1,000 ML IV STA ×2 (07:02)
[2019-01-18] MEDS ORDERED: PANTOPRAZOLE 40 MG/10 ML VIAL IVP STA (07:02)
--- NOTE | 2019-01-18 07:15 | ED ---
GI Bleed HPI - General Chief complaint: GI Bleed Stated complaint: Poss GI bleed Time Seen by Provider: 01/18/19 07:01 Source: patient, EMS, RN notes reviewed, old records reviewed Mode of arrival: EMS Limitations: no limitations - History of Present Illness Initial comments: Patient is a 78-year-old female with a history of stage IV pancreatic cancer, currently on chemotherapy, but recently has decreased to a lower dose this past week by her oncologist. Her oncologist is Dr. Taylor to [facility]. Patient reportedly had episodes of dark tarry stool this morning also having some green emesis. She complains of upper abdominal pain.Patient denies any recent fever, chills, shortness of breath, chest pain, back pain, numbness or tingling, dysuria or hematuria, constipation or diarrhea, headaches or visual changes, or any other current symptoms - Related Data Home Medications Medication Instructions Recorded Confirmed Ciprofloxacin HCl [Cipro] 500 mg PO Q12HR 01/18/19 01/18/19 Morphine Sulfate ER [Ms Contin] 15 mg PO Q12HR PRN 01/18/19 01/18/19 traMADol HCL [Ultram] 50 - 100 mg PO TID PRN 01/18/19 01/18/19 Allergies Allergy/AdvReac Type Severity Reaction Status Date / Time No Known Allergies Allergy Verified 01/18/19 07:43 Review of Systems ROS Statement: Those systems with pertinent positive or pertinent negative responses have been documented in the HPI. ROS Other: All systems not noted in ROS Statement are negative. Past Medical History Past Medical History: Diabetes Mellitus, Hyperlipidemia, Hypertension Additional Past Medical History / Comment(s): 06/12/14 Pt admitted to floor s/p Total L knee arthroplasty. Other HX: DIABETES (NO LONGER ON MEDS), PAIN RT SHOULDER FROM FALL -RECEIVED CORTISONE INJECTION 06/07/14. ARTHRITIS ILIANA KNEES. History of Any Multi-Drug Resistant Organisms: None Reported Past Surgical History: Back Surgery Additional Past Surgical History / Comment(s): 06/12/14 Total L knee arthroplasty. D & C Past Anesthesia/Blood Transfusion Reactions: No Reported Reaction Past Psychological History: No Psychological Hx Reported Smoking Status: Never smoker Past Alcohol Use History: None Reported Past Drug Use History: None Reported - Past Family History Mother Family Medical History: No Reported History, CVA/TIA Father Family Medical History: CVA/TIA General Exam - General Exam Comments Initial Comments: 78-year-old female. Alert and oriented. No significant distress. Limitations: no limitations General appearance: alert, in no apparent distress Head exam: Present: atraumatic, normocephalic, normal inspection Eye exam: Present: normal appearance, PERRL, EOMI. Absent: scleral icterus, conjunctival injection, periorbital swelling ENT exam: Present: normal exam, mucous membranes moist Neck exam: Present: normal inspection. Absent: tenderness, meningismus, lymphadenopathy Respiratory exam: Present: normal lung sounds bilaterally. Absent: respiratory distress, wheezes, rales, rhonchi, stridor Cardiovascular Exam: Present: regular rate GI/Abdominal exam: Present: soft, tenderness (Epigastric), normal bowel sounds. Absent: distended, guarding, rebound, rigid Extremities exam: Present: normal inspection, full ROM, normal capillary refill. Absent: tenderness, pedal edema, joint swelling, calf tenderness Back exam: Present: normal inspection Neurological exam: Present: alert, oriented X3, CN II-XII intact Psychiatric exam: Present: normal affect, normal mood Skin exam: Present: warm, dry, intact, normal color. Absent: rash Course Vital Signs 01/18/19 01/18/19 06:46 09:53 Temperature 97.8 F 97.2 F L Pulse Rate 128 H 92 Respiratory 17 18 Rate Blood Pressure 142/75 145/67 O2 Sat by Pulse 99 99 Oximetry Medical Decision Making - Medical Decision Making 78-year-old female presents today for GI bleed. History of stage IV pancreatic cancer. Oncologist is Dr. bekah mayers. At this time she does have a positive occult blood hemoglobin instructed to 8.6. CT and pelvis was completed just evidence of portal venous thrombosis. I discussed the concern for heparinization but with a GI bleed we will not heparinize the Patient. Patient case was discussed with our on-call GI doctor who recommended transfer to [facility]. Patient was then stable for transfer. Vital signs are stable. After talking to family they were initially agreeable to transfer [facility]. Then they called patient's oncologist Dr. bekah mayers who say that he wanted to have Patient here on hospice. I discussed the concern that no GI doctor here would want to have her at this time. Patient family was quite indecisive of admission here for hospice or completing transfer to [facility]. Eventually decided to complete with transfer to [facility]. I recalled Dr. godfrey told to inform of this. Patient will be transferred in stable condition to [facility] at 11:13 AM. - Lab Data Result diagrams: 01/18/19 08:00 01/18/19 08:00 Lab Results 01/18/19 01/18/19 01/18/19 Range/Units 07:55 08:00 08:00 WBC 3.4 L (3.8-10.6) k/uL RBC 3.01 L (3.80-5.40) m/uL Hgb 8.6 L D (11.4-16.0) gm/dL Hct 25.5 L (34.0-46.0) % MCV 84.6 (80.0-100.0) fL MCH 28.7 (25.0-35.0) pg MCHC 33.9 (31.0-37.0) g/dL RDW 16.4 H (11.5-15.5) % Plt Count 66 L D (150-450) k/uL Neutrophils % (Manual) 41 % Band Neutrophils % 4 % Lymphocytes % (Manual) 35 % Monocytes % (Manual) 9 % Metamyelocytes % 6 % Myelocytes % 5 % Promyelocytes % 1 % Neutrophils # (Manual) 1.50 (1.3-7.7) k/uL Lymphocytes # (Manual) 1.19 (1.0-4.8) k/uL Monocytes # (Manual) 0.31 (0-1.0) k/uL Metamyelocytes # (Man) 0.20 H (0) k/uL Myelocytes # (Manual) 0.17 H (0) k/uL Promyelocytes # (Man) 0.03 H (0) k/uL Nucleated RBCs 0 (0-0) /100 WBC Manual Slide Review Performed Poikilocytosis (manual Present Anisocytosis Slight PT (9.0-12.0) sec INR (<1.2) APTT (22.0-30.0) sec Sodium 138 (137-145) mmol/L Potassium 3.5 (3.5-5.1) mmol/L Chloride 102 (98-107) mmol/L Carbon Dioxide 22 (22-30) mmol/L Anion Gap 14 mmol/L BUN 18 H (7-17) mg/dL Creatinine 0.91 (0.52-1.04) mg/dL Est GFR (CKD-EPI)AfAm 70 (>60 ml/min/1.73 sqM) Est GFR (CKD-EPI)NonAf 61 (>60 ml/min/1.73 sqM) Glucose 143 H (74-99) mg/dL Plasma Lactic Acid Ron (0.7-2.0) mmol/L Calcium 8.7 (8.4-10.2) mg/dL Magnesium 1.1 L (1.6-2.3) mg/dL Total Bilirubin 1.5 H (0.2-1.3) mg/dL AST 121 H (14-36) U/L ALT 56 H (9-52) U/L Alkaline Phosphatase 344 H (38-126) U/L Troponin I (0.000-0.034) ng/mL Total Protein 6.3 (6.3-8.2) g/dL Albumin 2.8 L (3.5-5.0) g/dL Lipase 80 (23-300) U/L Stool Occult Blood Positive H (Negative) Blood Type Blood Type Confirm Blood Type Recheck Bld Type Recheck Status Antibody Screen Spec Expiration Date 01/18/19 01/18/19 01/18/19 Range/Units 08:00 08:00 08:00 WBC (3.8-10.6) k/uL RBC (3.80-5.40) m/uL Hgb (11.4-16.0) gm/dL Hct (34.0-46.0) % MCV (80.0-100.0) fL MCH (25.0-35.0) pg MCHC (31.0-37.0) g/dL RDW (11.5-15.5) % Plt Count (150-450) k/uL Neutrophils % (Manual) % Band Neutrophils % % Lymphocytes % (Manual) % Monocytes % (Manual) % Metamyelocytes % % Myelocytes % % Promyelocytes % % Neutrophils # (Manual) (1.3-7.7) k/uL Lymphocytes # (Manual) (1.0-4.8) k/uL Monocytes # (Manual) (0-1.0) k/uL Metamyelocytes # (Man) (0) k/uL Myelocytes # (Manual) (0) k/uL Promyelocytes # (Man) (0) k/uL Nucleated RBCs (0-0) /100 WBC Manual Slide Review Poikilocytosis (manual Anisocytosis PT 12.1 H (9.0-12.0) sec INR 1.2 H (<1.2) APTT 25.6 (22.0-30.0) sec Sodium (137-145) mmol/L Potassium (3.5-5.1) mmol/L Chloride (98-107) mmol/L Carbon Dioxide (22-30) mmol/L Anion Gap mmol/L BUN (7-17) mg/dL Creatinine (0.52-1.04) mg/dL Est GFR (CKD-EPI)AfAm (>60 ml/min/1.73 sqM) Est GFR (CKD-EPI)NonAf (>60 ml/min/1.73 sqM) Glucose (74-99) mg/dL Plasma Lactic Acid Ron 1.8 (0.7-2.0) mmol/L Calcium (8.4-10.2) mg/dL Magnesium (1.6-2.3) mg/dL Total Bilirubin (0.2-1.3) mg/dL AST (14-36) U/L ALT (9-52) U/L Alkaline Phosphatase (38-126) U/L Troponin I <0.012 (0.000-0.034) ng/mL Total Protein (6.3-8.2) g/dL Albumin (3.5-5.0) g/dL Lipase (23-300) U/L Stool Occult Blood (Negative) Blood Type Blood Type Confirm Blood Type Recheck Bld Type Recheck Status Antibody Screen Spec Expiration Date 01/18/19 01/18/19 Range/Units 08:00 09:14 WBC (3.8-10.6) k/uL RBC (3.80-5.40) m/uL Hgb (11.4-16.0) gm/dL Hct (34.0-46.0) % MCV (80.0-100.0) fL MCH (25.0-35.0) pg MCHC (31.0-37.0) g/dL RDW (11.5-15.5) % Plt Count (150-450) k/uL Neutrophils % (Manual) % Band Neutrophils % % Lymphocytes % (Manual) % Monocytes % (Manual) % Metamyelocytes % % Myelocytes % % Promyelocytes % % Neutrophils # (Manual) (1.3-7.7) k/uL Lymphocytes # (Manual) (1.0-4.8) k/uL Monocytes # (Manual) (0-1.0) k/uL Metamyelocytes # (Man) (0) k/uL Myelocytes # (Manual) (0) k/uL Promyelocytes # (Man) (0) k/uL Nucleated RBCs (0-0) /100 WBC Manual Slide Review Poikilocytosis (manual Anisocytosis PT (9.0-12.0) sec INR (<1.2) APTT (22.0-30.0) sec Sodium (137-145) mmol/L Potassium (3.5-5.1) mmol/L Chloride (98-107) mmol/L Carbon Dioxide (22-30) mmol/L Anion Gap mmol/L BUN (7-17) mg/dL Creatinine (0.52-1.04) mg/dL Est GFR (CKD-EPI)AfAm (>60 ml/min/1.73 sqM) Est GFR (CKD-EPI)NonAf (>60 ml/min/1.73 sqM) Glucose (74-99) mg/dL Plasma Lactic Acid Ron (0.7-2.0) mmol/L Calcium (8.4-10.2) mg/dL Magnesium (1.6-2.3) mg/dL Total Bilirubin (0.2-1.3) mg/dL AST (14-36) U/L ALT (9-52) U/L Alkaline Phosphatase (38-126) U/L Troponin I (0.000-0.034) ng/mL Total Protein (6.3-8.2) g/dL Albumin (3.5-5.0) g/dL Lipase (23-300) U/L Stool Occult Blood (Negative) Blood Type B Negative Blood Type Confirm B Negative Blood Type Recheck No Previous Record Bld Type Recheck Status CABO Indicated Antibody Screen NEGATIVE Spec Expiration Date 01/21/2019 - 231301/18/19 07:17 EKG shows sinus tachycardia, very disease pattern. Incomplete right bundle- branch block. The anterior fascicular block. Evidence of septal infarct is noted.. ST-T wave [place] consider lateral ischemia. Ventricular rate 124 beats were minute period. Pupils 150 ms. Frustration is 160 ms. QT QTc is 336/42 ms. No evidence of ST elevation. - Radiology Data Radiology results: report reviewed No bowel obstruction. No acute finding for patient's symptoms reconstruction of advanced pink-red cancer with metastatic disease. Partial thrombosis of the portal venous system bleed to be in the more proximal portal vein near the confluence of the splenic vein and SMV. Obstructing mass causing moderate central a trip had taken extra hepatic biliary dilation they're suspected interval progression of disease from December 02 study. Disposition Clinical Impression: GI bleed, Pancreas cancer, Portal vein thrombosis Disposition: ADMITTED IP TO THIS HOSP Condition: Stable Is patient prescribed a controlled substance at d/c from ED?: No Referrals: None,Stated [REFERRING] - 1-2 days Time of Disposition: 11:15
[2019-01-18] MEDS ORDERED: HYDROmorphone 1 MG/ML 1 ML SYRINGE IVP STA ×2 (08:45→10:53)
[2019-01-18 08:51] LABS: Anisocytosis Slight; HCT 25.5 % (34.0-46.0); MCH 28.7 pg (25.0-35.0); MCHC 33.9 g/dL (31.0-37.0); MCV 84.6 fL (80.0-100.0); Mean Platelet Volume 9.6; RBC 3.01 m/uL (3.80-5.40); RDW 16.4 % (11.5-15.5); WBC 3.4 k/uL (3.8-10.6)
[2019-01-18 08:53] LABS: HGB 8.6 gm/dL (11.4-16.0)
[2019-01-18 08:54] LABS: INR 1.2 (<1.2); Partial Thromboplastin Time 25.6 sec (22.0-30.0); Prothrombin Time 12.1 sec (9.0-12.0)
[2019-01-18 09:04] LABS: Albumin 2.8 g/dL (3.5-5.0); Calcium 8.7 mg/dL (8.4-10.2); Magnesium 1.1 mg/dL (1.6-2.3); Potassium 3.5 mmol/L (3.5-5.1); Total Bilirubin 1.5 mg/dL (0.2-1.3); Total Protein 6.3 g/dL (6.3-8.2)
[2019-01-18 09:49] LABS: Band Neutrophils % 4 %; Lymphocytes # (M) 1.19 k/uL (1.0-4.8); Metamyelocytes % 6 %; Monocytes # (M) 0.31 k/uL (0-1.0); Myelocytes # (M) 0.17 k/uL (0); Myelocytes % 5 %; Neutrophils % (M) 41 %; Nucleated Red Blood Cells 0 /100 WBC (0-0); Promyelocytes # (M) 0.03 k/uL (0); Promyelocytes % 1 %; Total Cells Counted 200
[2019-01-18 09:50] LABS: Platelet Count 66 k/uL (150-450); Poikilocytosis (M) Present
[2019-01-18 09:54] VITALS: BP 145/67; PULSE 92; RESP 18; TEMP 97.2
--- NOTE | 2019-01-18 10:05 | CT ---
EXAMINATION TYPE: CT abdomen pelvis w con DATE OF EXAM: 01/18/2019 HISTORY: History of pancreatic cancer with upper abdominal pain and nausea and vomiting, GI bleed per order. CT DLP: 1693.3mGycm Automated Exposure Control for Dose Reduction was Utilized. CONTRAST: CT scan of the abdomen and pelvis is performed without oral with IV Contrast, patient injected with 1 00 mL of Isovue 300. COMPARISON: CT abdomen and pelvis 6 weeks ago FINDINGS: LUNG BASES: New patchy lingular atelectasis and/or infiltrate axial image 6 for reference. Stable pro minent but subcentimeter right pericardial lymph node on axial image 21. Coronary artery calcificatio n is suspected. Obscuration level of aortic valve is seen. LIVER/GB: Better visualization scattered heterogeneous hypodense lesions consistent with metastatic d isease throughout the liver. For references a 1.5 cm lesion long axis left hepatic lobe axial image 3 6. For reference is 3.3 cm lesion long axis periphery of posterior right hepatic dome on axial image 37. For reference is 2.1 cm right hepatic lobe lesion image 59. There is suspected interval progressi on from December 2 study. There is moderate extrahepatic biliary dilatation before pancreatic mass jannie uring 16 mm coronal image 58. There is mild to moderate central intrahepatic as well as left intrahep atic biliary dilatation on current study. Gallbladder has distended margins and prominent folds PANCREAS: Central pancreatic head/body neoplasm measures approximately 4.9 x 3.7 cm current study riley ge 74 with distal ductal dilatation. There may be common origin of the celiac artery and SMA which ar e in close proximity on sagittal images. There is encroachment on SMA without encasement. There is en croachment of smaller branches of the celiac artery. There is poor visualization of draining splenic vein. There is partial thrombosis in the portal venous system likely there is a of splenic vein with SMV coronal image 66. SPLEEN: No significant abnormality is seen. ADRENALS: No significant abnormality is seen. KIDNEYS: No significant abnormality is seen. BOWEL: No suspicious small or large bowel dilatation. UTERUS/ADNEXA: Heterogeneous partially calcified lobulated uterus consistent with underlying uterine fibroids extends to left of midline. LYMPH NODES: Near the pancreatic neoplasm there are prominent but subcentimeter adjacent lymph nodes seen best inferior to mass and near axial image 93 for reference. OSSEOUS STRUCTURES: Extensive surgical change to the mid to lower lumbar spine with heterotopic ossif ication, posterior screws transfix L3-S1 levels with artificial disc material L4-L5 and L5-S1 levels thought present. Posterior decompression is seen. Multilevel moderate to severe spurring in the thora cic spine is seen. Moderate to severe degenerative changes both hip joints with spurring and narrowin g, right greater than left. Narrowing and subchondral cystic change of pubic symphysis. OTHER: Moderate calcified plaque in aorta extends into branch vessels. IMPRESSION: 1. No bowel obstruction. No significant acute finding is seen to account for patient's clinical sympt oms. 2. Redemonstration of advanced pancreatic cancer with hepatic metastatic disease. There is partial th rombosis of the portal venous system believed to be in the more proximal portal vein near confluence of splenic vein and SMV. Obstructing pancreatic mass is causing [id number] central intrahepatic and extra hepatic biliary dilatation seen better on current study due to presence of IV contrast. Th ere is suspected interval progression in disease from December 02 study.
[2019-01-18] MEDS ORDERED: MAGNESIUM SULFATE-D5W PMX 1 GM in DEXTROSE/WATER 1 100ML.BAG IVPB SCH (10:30)
== END 2019-01-18 11:48 | disposition other institution (70) ==
LOC: EC 06:42
DX: K92.2 Gastrointestinal hemorrhage, unspecified (principal); C25.9 Malignant neoplasm of pancreas, unspecified; I81 Portal vein thrombosis; Z96.652 Presence of left artificial knee joint
CPT/HCPCS: 99285; 96374; 96375; 96376; 96361 ×3; 36415; 93005; 86900; 86901; 80053; 83605; 83690; 83735; 84484; 85025; 85610; 85730; 86850; 82272; 74177; J1170; C9113; Q9967

== ENCOUNTER 2019-03-03 16:50 | Emergency (ER) | payer MEDICARE ==
[2019-03-03] MEDS ORDERED: LIDOCAINE 1% INJ 10MG/ML (20 ML MDV) SQ ONE (17:04)
--- NOTE | 2019-03-03 17:12 | ED ---
General Adult HPI - General Chief complaint: Fall Stated complaint: Hip Fx Time Seen by Provider: 03/03/19 16:51 Source: patient, EMS, RN notes reviewed Mode of arrival: EMS Limitations: no limitations - History of Present Illness Initial comments: Patient is a pleasant 78-year-old female presenting to the emergency department following fall. Incident occurred prior to arrival. Patient was in bed and fell out of bed. Patient did hurt her lower lip. Patient complains of some discomfort of her head. Patient did complain of significant discomfort of her right hip region. When patient was being rolled by EMS they did feel a snap and question if the hip removed at that time. EMS was concern for hip dislocation prior to that. Patient states she does not walk on her own. Patient provides very limited information. Patient has reported stage IV metastatic pancreas cancer. - Related Data Home Medications Medication Instructions Recorded Confirmed Ciprofloxacin HCl [Cipro] 500 mg PO Q12HR 01/18/19 01/18/19 Morphine Sulfate ER [Ms Contin] 15 mg PO Q12HR PRN 01/18/19 01/18/19 traMADol HCL [Ultram] 50 - 100 mg PO TID PRN 01/18/19 01/18/19 Allergies Allergy/AdvReac Type Severity Reaction Status Date / Time No Known Allergies Allergy Verified 01/18/19 07:43 Review of Systems ROS Statement: Those systems with pertinent positive or pertinent negative responses have been documented in the HPI. ROS Other: All systems not noted in ROS Statement are negative. Constitutional: Denies: fever Eyes: Denies: eye pain ENT: Denies: ear pain Respiratory: Denies: cough Cardiovascular: Denies: chest pain Endocrine: Denies: fatigue Gastrointestinal: Denies: abdominal pain Genitourinary: Denies: dysuria Neurological: Reports: headache. Denies: weakness, confusion Past Medical History Past Medical History: Diabetes Mellitus, Hyperlipidemia, Hypertension Additional Past Medical History / Comment(s): 06/12/14 Pt admitted to floor s/p Total L knee arthroplasty. Other HX: DIABETES (NO LONGER ON MEDS), PAIN RT SHOULDER FROM FALL -RECEIVED CORTISONE INJECTION 06/07/14. ARTHRITIS ILIANA KNEES. History of Any Multi-Drug Resistant Organisms: None Reported Past Surgical History: Back Surgery Additional Past Surgical History / Comment(s): 06/12/14 Total L knee arthroplasty. D & C Past Anesthesia/Blood Transfusion Reactions: No Reported Reaction Past Psychological History: No Psychological Hx Reported Smoking Status: Never smoker Past Alcohol Use History: None Reported Past Drug Use History: None Reported - Past Family History Mother Family Medical History: No Reported History, CVA/TIA Father Family Medical History: CVA/TIA General Exam Limitations: no limitations General appearance: alert, in no apparent distress Head exam: Present: atraumatic, normocephalic Eye exam: Present: normal appearance, PERRL ENT exam: Present: other (Inner lower lip laceration) Neck exam: Present: normal inspection. Absent: tenderness Respiratory exam: Present: normal lung sounds bilaterally Cardiovascular Exam: Present: regular rate, normal rhythm Expanded Peripheral pulses: 2+: Radial (R), Radial (L), Dorsalis Pedis (R), Dorsalis Pedis (L) GI/Abdominal exam: Present: soft. Absent: tenderness Extremities exam: Present: normal inspection, full ROM, normal capillary refill, other (Distally extremity is neurovascular intact). Absent: tenderness Neurological exam: Present: alert, CN II-XII intact Expanded Neurological exam: Present: protecting the airway Motor strength exam: RUE: 4, LUE: 4, RLE: 4, LLE: 4 Eye Response: (4) open spontaneously Motor Response: (6) obeys commands Verbal Response: (4) confused conversation Psychiatric exam: Present: normal affect, normal mood Skin exam: Present: normal color Course Vital Signs 03/03/19 17:04 Temperature 98.0 F Pulse Rate 111 H Respiratory 20 Rate Blood Pressure 159/99 O2 Sat by Pulse 98 Oximetry Medical Decision Making - Medical Decision Making Patient reevaluated and resting comfortably in bed. Patient and family (5members) updated on results. Family does admit the patient is enrolled in hospice. Family is comfortable with discharge home. - Radiology Data Radiology results: report reviewed (Computed tomography scan of the brain and cervical spine reveals no acute process.), image reviewed (X-ray of the right hip and pelvis shows no acute process) Disposition Clinical Impression: Fall, Hip injury, Lip laceration, Head injury Disposition: HOME SELF-CARE Condition: Stable Instructions (If sedation given, give patient instructions): Laceration (ED), Head Injury (ED), Hip Dislocation (ED), Hip Pain (ED) Additional Instructions: Please follow-up with primary care physician in the next couple of days for recheck. Return for increased pain, worsening or change in symptoms, confusion or weakness, or any other concerns. Is patient prescribed a controlled substance at d/c from ED?: No Referrals: Eduard Pérez MD [Primary Care Provider] - 1-2 days Time of Disposition: 18:13
--- NOTE | 2019-03-03 17:38 | CT ---
EXAMINATION TYPE: CT brain esteban key DATE OF EXAM: 03/03/2019 COMPARISON: None HISTORY: Fall. Pain. CT DLP: mGycm Automated exposure control for dose reduction was used. TECHNIQUE: CT scan of the head and cervical spine are performed without contrast. FINDINGS: There is cerebral cortical atrophy. There is no mass effect nor midline shift. There is n o sign of intracranial hemorrhage. Calvarium is intact. There is multilevel spondylotic changes in the cervical spine. Vertebra have normal alignment. There is hypertrophic large anterior osteophyte formation from C3 to C6. Facet joints are intact. Skull bas e is intact. IMPRESSION: Cerebral atrophy. No acute intracranial abnormality. Spondylotic changes in the cervical spine. No fracture.
--- NOTE | 2019-03-03 17:47 | XR ---
EXAMINATION TYPE: XR Hip RT and AP Pelvis DATE OF EXAM: 03/03/2019 COMPARISON: NONE HISTORY: Right hip pain TECHNIQUE: A single AP view of the pelvis is obtained. Two views of the right hip are obtained. FINDINGS: The pelvic ring is intact. There are large calcified uterine fibroids on the left side. Th ere are rods and screws fusing the lower lumbar spine. The proximal right femur and hip joint are int act. There is acetabular spurring. I see no hip fracture. IMPRESSION: Mild hypertrophic degenerative changes. No fracture seen.
--- NOTE | 2019-03-03 18:47 | ED ---
Disposition Clinical Impression: Fall, Hip injury, Lip laceration, Head injury Disposition: HOME SELF-CARE Condition: Stable Instructions (If sedation given, give patient instructions): Laceration (ED), Head Injury (ED), Hip Dislocation (ED), Hip Pain (ED) Additional Instructions: Please follow-up with primary care physician in the next couple of days for recheck. Return for increased pain, worsening or change in symptoms, confusion or weakness, or any other concerns. The sutures will dissolve in approximately 1 week. Please monitor for signs and symptoms of infection including: redness, warmth, drainage, discharge. Please return to ED if these signs or symptoms occur, new signs or symptoms develop or if condition worsens in anyway. Is patient prescribed a controlled substance at d/c from ED?: No Referrals: Eduard Pérez MD [STAFF PHYSICIAN] - 1-2 days Procedures - Laceration Laceration #1 Consent Obtained: verbal consent Site: lip, oral (lower lip inner mucosa) Size (cm): 2 Description: linear Depth: simple, single layer Anesthetic Used: lidocaine 1% Anesthesia Technique: local infiltration Amount (mls): 1 Pre-repair: wound explored, deep structures intact Type of Sutures: vicryl Size of Sutures: 5-0 (rapiid) Number of Sutures: 2 Technique: simple, interrupted Patient Tolerated Procedure: well, no complications
[2019-03-03 18:57] VITALS: BP 147/88; PULSE 100; RESP 18; TEMP 98.7
== END 2019-03-03 18:59 | disposition home or self-care (01) ==
LOC: EC 16:50
DX: S01.511A Laceration without foreign body of lip, initial encounter (principal); S79.911A Unspecified injury of right hip, initial encounter; R41.0 Disorientation, unspecified; C25.9 Malignant neoplasm of pancreas, unspecified; M17.0 Bilateral primary osteoarthritis of knee; Z79.891 Long term (current) use of opiate analgesic; Z96.652 Presence of left artificial knee joint; W06.XXXA Fall from bed, initial encounter; Y92.009 Unspecified place in unspecified non-institutional (private) residence as the place of occurrence of the external cause
CPT/HCPCS: 73502; 72125; 70450; 99284; 12011; J2001